=== PATIENT | female | born 1965 | race Caucasian/White ===

== ENCOUNTER 2016-04-05 10:23 | Emergency (ER) | payer SELFPAY ==
[~2016-04-05] VITALS: Ht 175.3 cm; Wt 99.8 kg
[~2016-04-05 10:23] MED LIST: SERT-135
[2016-04-05 10:35] VITALS: BP 150/85
[2016-04-05] MEDS ORDERED: KETOROLAC TROMETH 60MG/2ML VIAL IM ONE (11:30)
== END 2016-04-05 11:49 | disposition home or self-care (01) ==
LOC: ER 10:35
DX: S83.91XA Sprain of unspecified site of right knee, initial encounter (principal); Z88.6 Allergy status to analgesic agent; Z79.899 Other long term (current) drug therapy; F17.210 Nicotine dependence, cigarettes, uncomplicated; V49.49XA Driver injured in collision with other motor vehicles in traffic accident, initial encounter; Y93.89 Activity, other specified; Y99.9 Unspecified external cause status; Y92.89 Other specified places as the place of occurrence of the external cause
CPT/HCPCS: 73562; 96372; 99284; J1885

== ENCOUNTER 2019-07-24 21:37 | Emergency (ER) | payer MEDICAID, OTHER ==
[~2019-07-24] VITALS: Ht 172.7 cm; Wt 100.7 kg
[~2019-07-24 21:37] MED LIST changes: -SERT-135; +SERT100T
[2019-07-25 00:10] LABS: Basophils # (auto) 0.1 10 ^3/uL (0-0.2); Basophils % (auto) 0.3 % (0.0-2.0); Eosinophils # (auto) 0 10 ^3/uL (0-0.8); Eosinophils % (auto) 0.2 % (0.0-7.0); Hematocrit 53.1 % (36.0-46.0); Hemoglobin 18.1 g/dL (12.2-16.2); Lymphocytes # (auto) 0.9 10 ^3/uL (0.4-5.4); Lymphocytes % (auto) 5.3 % (10.0-50.0); Mean Corpuscular Hemoglobin 32.5 pg (28.0-32.0); Mean Corpuscular Hgb Conc. 34.1 g/dL (32.0-36.0); Mean Corpuscular Volume 95.3 fL (80.0-100.0); Monocytes # (auto) 0.8 10 ^3/uL (0-1.3); Monocytes % (auto) 5.1 % (0.0-12.0); Neutrophils # (auto) 14.8 10 ^3/uL (1.6-8.6); Neutrophils % (auto) 89.1 % (37.0-80.0); Nucleated Red Blood Cells % 0.3 %; Platelet Count (auto) 114 10^3/uL (140-450); Red Blood Cells 5.57 10^6/uL (4.0-5.20); Red Cell Distribution Width 13.5 % (11.8-14.3); White Blood Cell 16.6 10^3/uL (4.4-10.8)
[2019-07-25] MEDS ORDERED: SODIUM CHLORIDE 0.9% 2,000 ML IV ONE (00:15)
[2019-07-25] MEDS ORDERED: MORPHINE SULFATE 4 MG/ML SYR/VIAL IV ONE (00:15)
[2019-07-25] MEDS ORDERED: ONDANSETRON HCL 4 MG/2 ML VIAL IV ONE (00:15)
[2019-07-25 00:33] LABS: Albumin 3.8 g/dL (3.4-5.0); BUN/Creatinine Ratio 17.4; Calcium 8.8 mg/dL (8.5-10.1); Potassium 3.8 mmol/L (3.5-5.1)
[2019-07-25 00:41] LABS: Bilirubin, Total 1.4 mg/dL (0.2-1.0); Total Protein 7.7 g/dL (6.4-8.2)
[2019-07-25] MEDS ORDERED: ACETAMINOPHEN 500 MG TAB PO ONE (02:00)
[2019-07-25] MEDS ORDERED: KETOROLAC TROMETH 30 MG/ML 1ML VIAL IV ONE (02:45)
[2019-07-25] MEDS ORDERED: HYDROmorphone HCL 2 MG/ML VL IV ONE (03:30)
[2019-07-25 03:34] LABS: Urine Bacteria FEW /hpf (None Seen); Urine Blood 1+ /uL (Negative); Urine Specific Gravity 1.002 (1.001-1.035); Urine WBC 2 /hpf (0 - 5)
[2019-07-25 04:13] LABS: Alcohol, Urine < 3.0 mg/dL (0-10); Amphetamine Screen, Urine NEGATIVE (NEGATIVE); Barbiturate Scree,Urine NEGATIVE (NEGATIVE); Benzodiazephine Screen, Urine NEGATIVE (NEGATIVE); Cannabinoid Screen, Urine NEGATIVE (NEGATIVE); Cocaine Screen, Urine NEGATIVE (NEGATIVE); Opiate Scree,Urine NEGATIVE (NEGATIVE); Phencyclidine Screen, Urine NEGATIVE (NEGATIVE)
[2019-07-25] MEDS ORDERED: SODIUM CHLORIDE 0.9% 1,000 ML IV ONE (04:15)
[2019-07-25 05:10] VITALS: BP 80/40
== END 2019-07-25 05:30 | disposition home or self-care (01) ==
LOC: ER 21:38
DX: N20.0 Calculus of kidney (principal); N39.0 Urinary tract infection, site not specified; R11.2 Nausea with vomiting, unspecified
CPT/HCPCS: 36415; 74176; 80053; 80307; 81001; 83880; 85025; 96361; 96374; 96375; 99284; J1170; J1885; J2270; J2405; J7030

== ENCOUNTER 2019-07-26 07:04 | Inpatient (IN) | payer OTHER ==
[~2019-07-26] VITALS: Ht 172.7 cm; Wt 125.0 kg
[2019-07-26] VITALS (15 sets, daily range): BP systolic 97–109; BP diastolic 43–63
[2019-07-26] MEDS ORDERED: SODIUM CHLORIDE 0.9% 1,000 ML IV ONE ×2 (07:15)
[2019-07-26] MEDS ORDERED: cefTRIAXone 1GM/50ML D5W 50 ML IV ONE (07:30)
[2019-07-26 08:15] LABS: Basophils # (auto) 0 10 ^3/uL (0-0.2); Hemoglobin 14.8 g/dL (12.2-16.2); Lymphocytes # (auto) 0.5 10 ^3/uL (0.4-5.4); Monocytes # (auto) 0.5 10 ^3/uL (0-1.3); Neutrophils # (auto) 17.6 10 ^3/uL (1.6-8.6); Red Cell Distribution Width 14.1 % (11.8-14.3)
[2019-07-26] MEDS ORDERED: SODIUM CHLORIDE 0.9% 3,400 ML IV ONE (08:15)
[2019-07-26 08:17] LABS: Basophils % (auto) 0.1 % (0.0-2.0); Eosinophils # (auto) 0 10 ^3/uL (0-0.8); Eosinophils % (auto) 0.1 % (0.0-7.0); Lymphocytes % (auto) 2.7 % (10.0-50.0); Mean Corpuscular Hemoglobin 32.7 pg (28.0-32.0); Mean Corpuscular Hgb Conc. 33.5 g/dL (32.0-36.0); Mean Corpuscular Volume 97.6 fL (80.0-100.0); Monocytes % (auto) 2.6 % (0.0-12.0); Neutrophils % (auto) 94.5 % (37.0-80.0); Platelet Count (auto) 48 10^3/uL (140-450); White Blood Cell 18.6 10^3/uL (4.4-10.8)
[2019-07-26 08:22] LABS: INR 1.71 (0.9-1.15); Partial Thromboplastin Time 39.3 sec (23.64-32.05)
[2019-07-26] MEDS ORDERED: ZINC SULFATE 220mg CAP or TAB PO ONE (08:30)
[2019-07-26] MEDS ORDERED: ASCORBIC ACID 500 MG TAB PO ONE (08:30)
[2019-07-26 08:32] LABS: Albumin 2.7 g/dL (3.4-5.0); Potassium 4.4 mmol/L (3.5-5.1)
[2019-07-26 08:39] LABS: Bilirubin, Total 2.2 mg/dL (0.2-1.0); Total Protein 6.4 g/dL (6.4-8.2)
[2019-07-26 08:58] LABS: BUN/Creatinine Ratio 10.7
[2019-07-26] MEDS ORDERED: NOREPINEPHRINE 8 MG/250ML KIT 250 ML IV ONE (09:47)
[2019-07-26] MEDS: NOREPINEPHRINE 8 MG/250ML KIT 250 ML IV SCH (10:00)
[2019-07-26 10:03] LABS: Urine Amorphous Crystal FEW /hpf (None Seen); Urine Bacteria FEW /hpf (None Seen); Urine Blood 2+ /uL (Negative); Urine Specific Gravity 1.021 (1.001-1.035); Urine WBC 184 /hpf (0 - 5); Urine WBC Clumps PRESENT /hpf (None Seen)
[2019-07-26 12:16] LABS: Lactic Acid w/Reflex 2.3 mmol/L (0.4-2.0)
[2019-07-26] MEDS ORDERED: NITROGLYCERIN 0.4 MG SL TAB SL PRN (12:30)
[2019-07-26] MEDS ORDERED: ASPirin 81 mg TAB PO ONE (12:45)
[2019-07-26] MEDS ORDERED: NICOTINE 21MG/24 HR TOPICAL PATCH TD ONE (13:00)
[2019-07-26] MEDS: HYDROcodone-ACET 5/325MG TAB PO PRN ×2 (13:15→22:59)
[2019-07-26] MEDS: ONDANSETRON HCL 4 MG/2 ML VIAL IV PRN (13:16)
[2019-07-26] MEDS: PIPERACILLIN-TAZOB 2.25GM 50 ML IV SCH ×2 (13:16→22:21)
[2019-07-26] MEDS: SODIUM BICARBONATE 50ML VIAL 100 ML in D5W 5% 1,000 ML IV SCH ×2 (13:17→22:58)
[2019-07-26] MEDS ORDERED: POTASSIUM CHL 20MEQ/100ML 100 ML IV ONE (15:00)
[2019-07-26] MEDS: MORPHINE SULF INJ 2 MG/ML SYRINGE 1ML IV PRN (16:38)
[2019-07-26] MEDS ORDERED: HYDROmorphone HCL 2 MG/ML VL IV ONE (18:15)
[2019-07-26] MEDS: TAMSULOSIN HYDROCHLORIDE 0.4 MG CAP PO SCH (18:16)
[2019-07-26] MEDS: ALBUTEROL SULF 2.5 MG/0.5ML(0.5%) NEB SOLN NEB PRN (19:43)
[2019-07-26] MEDS: IPRATROPIUM BROM 0.5 MG/2.5ML INH SOL NEB PRN (19:44)
[2019-07-26] MEDS ORDERED: SODIUM BICARBONATE 8.4 % INJ 50ML VIAL IV ONE (21:38)
[2019-07-26] MEDS: HYDROCORTISONE SOD SUCC 100 MG/2ML INJ VIAL IV SCH (22:21)
[2019-07-27] VITALS (96 sets, daily range): BP systolic 90–118; BP diastolic 36–69
[2019-07-27] MEDS: NOREPINEPHRINE 8 MG/250ML KIT 250 ML IV SCH (02:21)
[2019-07-27 04:21] LABS: Basophils # (auto) 0 10 ^3/uL (0-0.2); Basophils % (auto) 0.1 % (0.0-2.0); Eosinophils # (auto) 0.7 10 ^3/uL (0-0.8); Eosinophils % (auto) 3.3 % (0.0-7.0); Hematocrit 40.5 % (36.0-46.0); Hemoglobin 13.6 g/dL (12.2-16.2); Lymphocytes # (auto) 0.8 10 ^3/uL (0.4-5.4); Lymphocytes % (auto) 3.7 % (10.0-50.0); Mean Corpuscular Hemoglobin 32.4 pg (28.0-32.0); Mean Corpuscular Hgb Conc. 33.6 g/dL (32.0-36.0); Mean Corpuscular Volume 96.6 fL (80.0-100.0); Monocytes # (auto) 0.5 10 ^3/uL (0-1.3); Monocytes % (auto) 2.3 % (0.0-12.0); Neutrophils % (auto) 90.6 % (37.0-80.0); Platelet Count (auto) 51 10^3/uL (140-450); Red Blood Cells 4.19 10^6/uL (4.0-5.20); Red Cell Distribution Width 14.1 % (11.8-14.3)
[2019-07-27 04:59] LABS: Calcium 6.6 mg/dL (8.5-10.1); Potassium 3.6 mmol/L (3.5-5.1)
[2019-07-27 05:02] LABS: BUN/Creatinine Ratio 18.4
[2019-07-27] MEDS: ALBUTEROL SULF 2.5 MG/0.5ML(0.5%) NEB SOLN NEB PRN ×2 (05:27→15:28)
[2019-07-27] MEDS: IPRATROPIUM BROM 0.5 MG/2.5ML INH SOL NEB PRN ×2 (05:27→15:28)
[2019-07-27] MEDS: PIPERACILLIN-TAZOB 2.25GM 50 ML IV SCH (05:58)
[2019-07-27] MEDS: ACETAMINOPHEN 500 MG TAB PO PRN ×2 (07:59→20:05)
[2019-07-27] MEDS: SODIUM BICARBONATE 50ML VIAL 100 ML in D5W 5% 1,000 ML IV SCH ×2 (08:46→17:26)
[2019-07-27] MEDS ORDERED: cefTRIAXone 1GM/50ML D5W 50 ML IV SCH (09:00)
[2019-07-27] MEDS: NICOTINE 21MG/24 HR TOPICAL PATCH TD SCH (09:49)
[2019-07-27] MEDS: ASPirin 81 mg TAB PO SCH (09:49)
[2019-07-27] MEDS: ALLOPURINOL 100 MG TAB PO SCH (09:49)
[2019-07-27] MEDS: HYDROCORTISONE SOD SUCC 100 MG/2ML INJ VIAL IV SCH ×2 (09:49→22:35)
[2019-07-27] MEDS: ENOXAPARIN SOD 120 MG/0.8 ML SYRINGE SC SCH (09:50)
[2019-07-27] MEDS ORDERED: PANTOPRAZOLE 40 MG TAB PO ONE (11:30)
[2019-07-27] MEDS ORDERED: CHOLECALCIFEROL (VITD3) 1,000IU=25mCg TAB PO ONE (11:30)
[2019-07-27] MEDS ORDERED: SODIUM PHOSPHATES 40 MEQ in D5W 5% 250 ML IV ONE (12:00)
[2019-07-27] MEDS: PIPERACILLIN-TAZOB 3.375GM 100 ML IV SCH ×2 (12:59→17:27)
[2019-07-27] MEDS: TAMSULOSIN HYDROCHLORIDE 0.4 MG CAP PO SCH (17:27)
[2019-07-27] MEDS: HYDROcodone-ACET 5/325MG TAB PO PRN ×2 (18:24→19:14)
[2019-07-27] MEDS: ONDANSETRON HCL 4 MG/2 ML VIAL IV PRN (18:42)
[2019-07-28] VITALS (95 sets, daily range): BP systolic 87–129; BP diastolic 44–81
[2019-07-28] MEDS: NOREPINEPHRINE 8 MG/250ML KIT 250 ML IV SCH (00:06)
[2019-07-28] MEDS: ACETAMINOPHEN 500 MG TAB PO PRN ×2 (04:17→16:31)
[2019-07-28 04:44] LABS: Basophils # (auto) 0 10 ^3/uL (0-0.2); Basophils % (auto) 0.1 % (0.0-2.0); Eosinophils # (auto) 0 10 ^3/uL (0-0.8); Monocytes # (auto) 0.4 10 ^3/uL (0-1.3); Neutrophils # (auto) 14.7 10 ^3/uL (1.6-8.6); Red Cell Distribution Width 14.3 % (11.8-14.3); White Blood Cell 15.7 10^3/uL (4.4-10.8)
[2019-07-28 04:46] LABS: Eosinophils % (auto) 0.1 % (0.0-7.0); Hemoglobin 12.7 g/dL (12.2-16.2); Lymphocytes # (auto) 0.6 10 ^3/uL (0.4-5.4); Lymphocytes % (auto) 3.7 % (10.0-50.0); Mean Corpuscular Hemoglobin 32.9 pg (28.0-32.0); Mean Corpuscular Hgb Conc. 34.2 g/dL (32.0-36.0); Monocytes % (auto) 2.6 % (0.0-12.0); Neutrophils % (auto) 93.5 % (37.0-80.0); Platelet Count (auto) 55 10^3/uL (140-450); Red Blood Cells 3.86 10^6/uL (4.0-5.20)
[2019-07-28 04:47] LABS: INR 1.12 (0.9-1.15)
[2019-07-28 04:52] LABS: Potassium 3.3 mmol/L (3.5-5.1)
[2019-07-28 05:04] LABS: Albumin 2.2 g/dL (3.4-5.0); BUN/Creatinine Ratio 13.3; Bilirubin, Total 1.1 mg/dL (0.2-1.0); Calcium 7.1 mg/dL (8.5-10.1); Magnesium 2.1 mg/dL (1.6-2.6); Phosphorus 2.8 mg/dL (2.5-4.90); Total Protein 5.7 g/dL (6.4-8.2)
[2019-07-28] MEDS: PIPERACILLIN-TAZOB 3.375GM 100 ML IV SCH ×5 (05:34→23:50)
[2019-07-28] MEDS ORDERED: POTASSIUM CHL 20MEQ/100ML 100 ML IV ONE (06:45)
[2019-07-28] MEDS: SODIUM BICARBONATE 50ML VIAL 100 ML in D5W 5% 1,000 ML IV SCH (06:53)
[2019-07-28] MEDS: ASPirin 81 mg TAB PO SCH (09:21)
[2019-07-28] MEDS: PANTOPRAZOLE 40 MG TAB PO SCH (09:21)
[2019-07-28] MEDS: ALLOPURINOL 100 MG TAB PO SCH (09:21)
[2019-07-28] MEDS: CHOLECALCIFEROL (VITD3) 1,000IU=25mCg TAB PO SCH (09:23)
[2019-07-28] MEDS: ENOXAPARIN SOD 120 MG/0.8 ML SYRINGE SC SCH (09:24)
[2019-07-28] MEDS: HYDROCORTISONE SOD SUCC 100 MG/2ML INJ VIAL IV SCH (10:39)
[2019-07-28] MEDS: NICOTINE 21MG/24 HR TOPICAL PATCH TD SCH (10:39)
[2019-07-28] MEDS: SODIUM CHLORIDE 0.9% 1,000 ML IV SCH ×2 (10:51→21:50)
[2019-07-28] MEDS: IPRATROPIUM BROM 0.5 MG/2.5ML INH SOL NEB PRN (15:54)
[2019-07-28] MEDS: ALBUTEROL SULF 2.5 MG/0.5ML(0.5%) NEB SOLN NEB PRN (15:55)
[2019-07-28] MEDS: MORPHINE SULF INJ 2 MG/ML SYRINGE 1ML IV PRN (16:34)
[2019-07-28] MEDS: TAMSULOSIN HYDROCHLORIDE 0.4 MG CAP PO SCH (18:09)
[2019-07-28] MEDS ORDERED: POTASSIUM CHL 20 Meq TABLET PO ONE (19:15)
[2019-07-29] VITALS (80 sets, daily range): BP systolic 88–132; BP diastolic 44–73
[2019-07-29] MEDS: MORPHINE SULF INJ 2 MG/ML SYRINGE 1ML IV PRN ×3 (02:05→06:05)
[2019-07-29] MEDS: HYDROcodone-ACET 5/325MG TAB PO PRN ×4 (02:54→21:52)
[2019-07-29 05:36] LABS: Albumin 2.2 g/dL (3.4-5.0); Calcium 7.5 mg/dL (8.5-10.1); Potassium 3.2 mmol/L (3.5-5.1)
[2019-07-29 05:41] LABS: BUN/Creatinine Ratio 15.5; Bilirubin, Direct 0.7 mg/dL (0-0.2); Bilirubin, Total 1.2 mg/dL (0.2-1.0); Total Protein 5.5 g/dL (6.4-8.2)
[2019-07-29 05:42] LABS: Basophils # (auto) 0 10 ^3/uL (0-0.2); Eosinophils # (auto) 0.1 10 ^3/uL (0-0.8); Hemoglobin 12.4 g/dL (12.2-16.2); Mean Corpuscular Volume 95.8 fL (80.0-100.0)
[2019-07-29 05:44] LABS: Basophils % (auto) 0.4 % (0.0-2.0); Eosinophils % (auto) 0.6 % (0.0-7.0); Hematocrit 36.2 % (36.0-46.0); Lymphocytes # (auto) 1.2 10 ^3/uL (0.4-5.4); Lymphocytes % (auto) 11.3 % (10.0-50.0); Mean Corpuscular Hemoglobin 32.8 pg (28.0-32.0); Mean Corpuscular Hgb Conc. 34.2 g/dL (32.0-36.0); Monocytes # (auto) 0.7 10 ^3/uL (0-1.3); Monocytes % (auto) 7.1 % (0.0-12.0); Neutrophils # (auto) 8.2 10 ^3/uL (1.6-8.6); Neutrophils % (auto) 80.6 % (37.0-80.0); Platelet Count (auto) 54 10^3/uL (140-450); Red Blood Cells 3.78 10^6/uL (4.0-5.20); Red Cell Distribution Width 14.2 % (11.8-14.3); White Blood Cell 10.2 10^3/uL (4.4-10.8)
[2019-07-29] MEDS: PIPERACILLIN-TAZOB 3.375GM 100 ML IV SCH ×3 (05:47→18:25)
[2019-07-29] MEDS ORDERED: POTASSIUM CHL 20MEQ/100ML 100 ML IV ONE (06:45)
[2019-07-29] MEDS: ALLOPURINOL 100 MG TAB PO SCH (08:33)
[2019-07-29] MEDS: PANTOPRAZOLE 40 MG TAB PO SCH (08:33)
[2019-07-29] MEDS: CHOLECALCIFEROL (VITD3) 1,000IU=25mCg TAB PO SCH (08:34)
[2019-07-29] MEDS: ENOXAPARIN SOD 120 MG/0.8 ML SYRINGE SC SCH (08:34)
[2019-07-29] MEDS: ALBUTEROL SULF 2.5 MG/0.5ML(0.5%) NEB SOLN NEB PRN (08:56)
[2019-07-29] MEDS: IPRATROPIUM BROM 0.5 MG/2.5ML INH SOL NEB PRN (08:56)
[2019-07-29] MEDS: NOREPINEPHRINE 8 MG/250ML KIT 250 ML IV SCH (09:54)
[2019-07-29] MEDS: SODIUM CHLORIDE 0.9% 1,000 ML IV SCH ×2 (10:52→12:00)
[2019-07-29] MEDS: ASPirin 81 mg TAB PO SCH (10:57)
[2019-07-29] MEDS: NICOTINE 21MG/24 HR TOPICAL PATCH TD SCH (10:58)
[2019-07-29] MEDS ORDERED: POTASSIUM CHL 20 Meq TABLET PO ONE (11:30)
[2019-07-29] MEDS: TAMSULOSIN HYDROCHLORIDE 0.4 MG CAP PO SCH (18:25)
[2019-07-30] MEDS ORDERED: ENOXAPARIN SOD 30 MG/0.3 ML SYRINGE SC SCH (10:00)
== END 2019-07-29 21:55 | disposition short-term general hospital (02) | DRG 871 ==
LOC: ER 07:04 → EDBD 07:04 → TELE 07:05 → ICU WEST 20:12
PROVIDERS: ADMIT Nurse Practitioner Acute Care; ATTEND Internal Medicine
DX: A41.9 Sepsis, unspecified organism (principal); R65.21 Severe sepsis with septic shock; I21.4 Non-ST elevation (NSTEMI) myocardial infarction; N17.0 Acute kidney failure with tubular necrosis; E44.0 Moderate protein-calorie malnutrition; Z68.41 Body mass index [BMI] 40.0-44.9, adult; N30.00 Acute cystitis without hematuria; I13.0 Hypertensive heart and chronic kidney disease with heart failure and stage 1 through stage 4 chronic kidney disease, or unspecified chronic kidney disease; E66.9 Obesity, unspecified; F17.210 Nicotine dependence, cigarettes, uncomplicated; D72.829 Elevated white blood cell count, unspecified; E83.51 Hypocalcemia; N18.9 Chronic kidney disease, unspecified; E11.22 Type 2 diabetes mellitus with diabetic chronic kidney disease; J44.9 Chronic obstructive pulmonary disease, unspecified; I95.9 Hypotension, unspecified; E11.649 Type 2 diabetes mellitus with hypoglycemia without coma; Z88.5 Allergy status to narcotic agent; Z87.442 Personal history of urinary calculi; Z90.49 Acquired absence of other specified parts of digestive tract; Z79.899 Other long term (current) drug therapy; Z82.49 Family history of ischemic heart disease and other diseases of the circulatory system; Z80.8 Family history of malignant neoplasm of other organs or systems
CPT/HCPCS: 36415; 36600; 71045; 74176; 80048; 80053; 80061; 80076; 81001; 82306; 82728; 82805; 83036; 83605; 83615; 83735; 83880; 83970; 84100; 84443; 84484; 84550; 85025; 85610; 85730; 86141; 87040; 87070; 87081; 87086; 87804; 87880; 93005; 93306; 94640; 99291; G0378; J0696; J2405; J2543; J3480; J7042; J7060

== ENCOUNTER 2022-04-27 17:27 | Inpatient (IN) | payer OTHER ==
[~2022-04-27] VITALS: Ht 175.3 cm; Wt 114.9 kg
[2022-04-27] MEDS: MIDAZOLAM DRIP 50 mg/50mL 50 ML IV SCH (06:10)
[2022-04-27] MEDS ORDERED: HYDROmorphone HCL 2 MG/ML VL/or syr IM ONE (17:45)
[2022-04-27] MEDS ORDERED: ONDANSETRON HCL 4 MG/2 ML VIAL IM ONE ×3 (17:45→22:45)
[2022-04-27 17:55] LABS: Basophils # (auto) 0.1 10 ^3/uL (0-0.2); Eosinophils # (auto) 0.1 10 ^3/uL (0-0.8)
[2022-04-27 17:57] LABS: Basophils % (auto) 0.4 % (0.0-2.0); Eosinophils % (auto) 0.8 % (0.0-7.0); Hematocrit 53.9 % (36.0-46.0); Hemoglobin 19.5 g/dL (12.2-16.2); Mean Corpuscular Hemoglobin 34.6 pg (28.0-32.0); Mean Corpuscular Hgb Conc. 36.1 g/dL (32.0-36.0); Mean Corpuscular Volume 95.7 fL (80.0-100.0); Monocytes # (auto) 0.8 10 ^3/uL (0-1.3); Monocytes % (auto) 4.9 % (0.0-12.0); Neutrophils # (auto) 11.2 10 ^3/uL (1.6-8.6); Neutrophils % (auto) 64.9 % (37.0-80.0); Red Blood Cells 5.63 10^6/uL (4.0-5.20); Red Cell Distribution Width 12.9 % (11.8-14.3); White Blood Cell 17.2 10^3/uL (4.4-10.8)
[2022-04-27] MEDS ORDERED: ONDANSETRON HCL 4 MG/2 ML VIAL IV ONE (18:00)
[2022-04-27] MEDS ORDERED: HYDROmorphone HCL 2 MG/ML VL/or syr IV ONE (18:00)
[2022-04-27] MEDS ORDERED: ROCURONIUM 10MG/ML 10ML VIAL IV ONE (18:15)
[2022-04-27] MEDS ORDERED: SUCCINYLCHOLINE CHLORIDE 20 MG/ML 10ML VIAL IV ONE (18:15)
[2022-04-27] MEDS ORDERED: ETOMIDATE (2MG/ML) 20ML VIAL IV ONE (18:15)
[2022-04-27 18:33] LABS: Albumin 3.6 g/dL (3.4-5.0); Calcium 9.4 mg/dL (8.5-10.1); Magnesium 2.1 mg/dL (1.6-2.6); Potassium 4.5 mmol/L (3.5-5.1)
[2022-04-27 18:38] LABS: BUN/Creatinine Ratio 22.4; Bilirubin, Total 1.7 mg/dL (0.2-1.0); Total Protein 7.1 g/dL (6.4-8.2)
[2022-04-27] MEDS ORDERED: fentaNYL CITRATE 100 MCG/2 ML VL IV ONE (19:45)
[2022-04-27] MEDS ORDERED: LIDOCAINE W/ EPINEPHRINE 2% INJ 20ML VIAL ONE (20:03)
[2022-04-27] MEDS ORDERED: POVIDONE IODINE 10 % TOPICAL OINT 30GM TOP ONE (20:03)
[2022-04-27] MEDS ORDERED: ONDANSETRON HCL 4 MG/2 ML VIAL ONE (20:12)
[2022-04-27] MEDS ORDERED: GLYCOPYRROLATE 0.2 MG/ML 1ML VIAL ONE (20:12)
[2022-04-27] MEDS ORDERED: LIDOCAINE 2% (LOCAL ANESTH.) PF 5ml SDV ONE (20:12)
[2022-04-27] MEDS ORDERED: PROPOFOL 10 MG/ML 20 ML IV ONE ×2 (20:12→22:16)
[2022-04-27] MEDS ORDERED: DexAMETHasone SOD PHOS 10MG/1ML VIAL INJ ONE (20:12)
[2022-04-27] MEDS ORDERED: MIDAZOLAM HCL 2MG/2ML 2ml VIAL (1mg/ml) ONE (20:20)
[2022-04-27] MEDS ORDERED: ePHEDrine SULFATE 50 MG/ML AMP IV ONE (20:35)
[2022-04-27] MEDS ORDERED: KETOROLAC TROMETH 60MG/2ML VIAL IM ONE (20:35)
[2022-04-27] MEDS ORDERED: ceFAZolin 1GM/50ML 100 ML IV ONE (21:05)
[2022-04-27] MEDS ORDERED: metroNIDAZOLE 500MG/100ML 100 ML IV ONE (22:15)
[2022-04-27] MEDS ORDERED: D5W/SOD CHL 0.45%/KCL 20MEQ 1,000 ML IV ONE (22:15)
[2022-04-27] MEDS ORDERED: PANTOPRAZOLE 40 MG/10 ML VIAL INJ IV ONE (22:15)
[2022-04-27] MEDS ORDERED: PIPERACILLIN-TAZO 4.5GM 100 ML IV ONE (22:15)
[2022-04-27 22:50] VITALS: BP 60/27
[2022-04-27] MEDS ORDERED: NOREPINEPHRINE 8 MG/250ML KIT 250 ML IV ONE (22:59)
[2022-04-27 23:31] VITALS: BP 124/90
[2022-04-28] VITALS (95 sets, daily range): BP systolic 79–129; BP diastolic 40–93
[2022-04-28] MEDS ORDERED: ONDANSETRON HCL 4 MG/2 ML VIAL IV PRN
[2022-04-28] MEDS ORDERED: MORPHINE SULFATE INJ 2 MG/ml SYRG IV PRN
[2022-04-28] MEDS ORDERED: SODIUM CHLORIDE 0.9% 1,000 ML IV SCH
[2022-04-28] MEDS ORDERED: NITROGLYCERIN 0.4 MG SL TAB SL PRN
[2022-04-28] MEDS ORDERED: SODIUM BICARBONATE 8.4 % INJ 50ML VIAL IV ONE ×2 (00:34→02:45)
[2022-04-28] MEDS ORDERED: D5W/SOD CHL 0.45%/KCL 20MEQ 1,000 ML IV ONE (01:03)
[2022-04-28] MEDS: NOREPINEPHRINE 8 MG/250ML KIT 250 ML IV SCH ×3 (01:07→19:08)
[2022-04-28] MEDS: PROPOFOL 100 ML IV SCH ×3 (01:10→09:40)
[2022-04-28] MEDS ORDERED: PIPERACILLIN-TAZO 4.5GM 100 ML IV ONE (02:30)
[2022-04-28 02:48] LABS: Basophils # (auto) 0 10 ^3/uL (0-0.2); Eosinophils # (auto) 0 10 ^3/uL (0-0.8); Eosinophils % (auto) 0.1 % (0.0-7.0); Lymphocytes # (auto) 0.4 10 ^3/uL (0.4-5.4); Lymphocytes % (auto) 11.9 % (10.0-50.0); Monocytes # (auto) 0.2 10 ^3/uL (0-1.3); Monocytes % (auto) 5.5 % (0.0-12.0); White Blood Cell 3.3 10^3/uL (4.4-10.8)
[2022-04-28 02:50] LABS: Basophils % (auto) 0.5 % (0.0-2.0); Hematocrit 54.7 % (36.0-46.0); Mean Corpuscular Hemoglobin 34.1 pg (28.0-32.0); Mean Corpuscular Hgb Conc. 34.7 g/dL (32.0-36.0); Mean Corpuscular Volume 98.4 fL (80.0-100.0); Neutrophils # (auto) 2.7 10 ^3/uL (1.6-8.6); Nucleated Red Blood Cells % 0.2 %; Red Blood Cells 5.56 10^6/uL (4.0-5.20); Red Cell Distribution Width 12.9 % (11.8-14.3)
[2022-04-28 03:08] LABS: Albumin 1.7 g/dL (3.4-5.0); BUN/Creatinine Ratio 19.5; Calcium 7.4 mg/dL (8.5-10.1); Potassium 5.1 mmol/L (3.5-5.1)
[2022-04-28 03:10] LABS: Bilirubin, Total 3.8 mg/dL (0.2-1.0); Total Protein 3.8 g/dL (6.4-8.2)
[2022-04-28] MEDS: metroNIDAZOLE 500MG/100ML 100 ML IV SCH ×3 (05:55→22:02)
[2022-04-28] MEDS ORDERED: ceFAZolin 1GM/50ML 50 ML IV SCH (06:00)
[2022-04-28] MEDS ORDERED: SODIUM CHLORIDE 0.9% 2,000 ML IV ONE (09:00)
[2022-04-28] MEDS ORDERED: fentaNYL Drip 2500mCg/250mlNS 250 ML IV SCH (09:00)
[2022-04-28] MEDS ORDERED: SODIUM CHLORIDE 0.9% 2,700 ML IV ONE (09:15)
[2022-04-28] MEDS: fentaNYL Drip 2500mCg/250mlNS 250 ML IV SCH (09:39)
[2022-04-28] MEDS: PANTOPRAZOLE 40 MG/10 ML VIAL INJ IV SCH (10:10)
[2022-04-28 10:48] LABS: Magnesium 2.5 mg/dL (1.6-2.6); Phosphorus 3.9 mg/dL (2.5-4.90)
[2022-04-28] MEDS ORDERED: FOLIC ACID 1 MG, MULTIPLE VITAMIN 10 ML, MAGNESIUM SULF SDV 50% 8 MEQ, THIAMINE INJ 100... INJ SCH ×5 (12:00)
[2022-04-28] MEDS ORDERED: DEXTROSE (50%) 50ML SYRG IV SCH (12:00)
[2022-04-28 12:08] LABS: Lactic Acid w/Reflex 5.8 mmol/L (0.4-2.0)
[2022-04-28] MEDS: D5W/SOD CHL 0.45% 1,000 ML IV SCH (13:00)
[2022-04-28] MEDS: PHENYLEPHRINE IV 250 ML IV SCH ×2 (14:45→19:07)
[2022-04-28] MEDS: ACCU-CHEK COMFORT CURVE STRIP VI SCH ×2 (15:06→18:00)
[2022-04-28] MEDS: InsuLIN REG 1unit/0.01ml Soln (100units/ml) SC SCH ×2 (15:06→18:00)
[2022-04-28] MEDS ORDERED: TPN PER PHARMACY IV NR ×6 (20:00)
[2022-04-28] MEDS: MIDAZOLAM DRIP 50 mg/50mL 50 ML IV SCH (22:15)
[2022-04-29] VITALS (103 sets, daily range): BP systolic 79–145; BP diastolic 42–81
[2022-04-29] MEDS: ACCU-CHEK COMFORT CURVE STRIP VI SCH ×5 (01:00→23:20)
[2022-04-29] MEDS: D5W/SOD CHL 0.45% 1,000 ML IV SCH ×4 (01:10→21:50)
[2022-04-29] MEDS: InsuLIN REG 1unit/0.01ml Soln (100units/ml) SC SCH ×5 (01:32→23:21)
[2022-04-29] MEDS: PHENYLEPHRINE IV 250 ML IV SCH ×3 (03:40→18:31)
[2022-04-29] MEDS: metroNIDAZOLE 500MG/100ML 100 ML IV SCH ×4 (06:33→22:32)
[2022-04-29 06:41] LABS: Hemoglobin 16.6 g/dL (12.2-16.2); Mean Corpuscular Hgb Conc. 34.9 g/dL (32.0-36.0)
[2022-04-29 06:43] LABS: Hematocrit 47.6 % (36.0-46.0); Mean Corpuscular Hemoglobin 34.8 pg (28.0-32.0); Mean Corpuscular Volume 99.7 fL (80.0-100.0); Red Blood Cells 4.78 10^6/uL (4.0-5.20); White Blood Cell 6.2 10^3/uL (4.4-10.8)
[2022-04-29 06:48] LABS: Basophils % (manual) 0 (0.0-2.0); Blast Cells 0; Eosinophils % (manual) 0 (0-7); Myelocytes % 0; Promyelocytes % 0; Reactive Lymphocytes 0
[2022-04-29 06:56] LABS: Potassium 5.2 mmol/L (3.5-5.1)
[2022-04-29 07:08] LABS: Albumin 1.2 g/dL (3.4-5.0); BUN/Creatinine Ratio 19.1; Bilirubin, Total 1.8 mg/dL (0.2-1.0); Calcium 7.5 mg/dL (8.5-10.1); Magnesium 2.1 mg/dL (1.6-2.6); Phosphorus 3.5 mg/dL (2.5-4.90); Total Protein 3.9 g/dL (6.4-8.2)
[2022-04-29] MEDS: fentaNYL Drip 2500mCg/250mlNS 250 ML IV SCH ×2 (09:15→15:28)
[2022-04-29] MEDS: MIDAZOLAM DRIP 50 mg/50mL 50 ML IV SCH ×5 (09:31→22:20)
[2022-04-29] MEDS: NOREPINEPHRINE 8 MG/250ML KIT 250 ML IV SCH ×3 (09:32→18:30)
[2022-04-29] MEDS ORDERED: SODIUM BICARBONATE 8.4 % INJ 50ML VIAL IV ONE ×2 (10:15→16:45)
[2022-04-29] MEDS: PANTOPRAZOLE 40 MG/10 ML VIAL INJ IV SCH (10:35)
[2022-04-29] MEDS: cefTRIAXone 1GM/50ML D5W 50 ML IV SCH (10:35)
[2022-04-29] MEDS: THIAMINE 100mg/ml INJ (200mg/2ml VIAL) IV SCH (10:35)
[2022-04-29 12:09] LABS: Band Neutrophils % (manual) 81; Lymphocytes % (manual) 11 (10.0-50.0); Metamyelocytes % 3; Monocytes % (manual) 5 (0-12)
[2022-04-29] MEDS ORDERED: FUROSEMIDE 40 MG/4 ML VIAL IV ONE (14:30)
[2022-04-29] MEDS ORDERED: InsuLIN REG 1unit/0.01ml Soln (100units/ml) IV ONE (16:45)
[2022-04-29] MEDS ORDERED: CALCIUM GLUC 1,000mg/50ml-NS 50 ML IV ONE (16:45)
[2022-04-29] MEDS ORDERED: DEXTROSE (50%) 50ML SYRG IV ONE (16:45)
[2022-04-29] MEDS ORDERED: DEXTROSE 10% 250 ML IV ONE (18:15)
[2022-04-29] MEDS ORDERED: SODIUM ACETATE IV NR ×9 (20:00)
[2022-04-29] MEDS ORDERED: CALCIUM GLUC IV NR ×9 (20:00)
[2022-04-29] MEDS ORDERED: [UNRECOGNIZED DRUG - OTHER] IV NR ×9 (20:00)
[2022-04-29] MEDS ORDERED: SODIUM PHOSPHATES IV NR ×9 (20:00)
[2022-04-30] VITALS (102 sets, daily range): BP systolic 81–144; BP diastolic 26–83
[2022-04-30] MEDS: NOREPINEPHRINE 8 MG/250ML KIT 250 ML IV SCH ×3 (00:15→22:07)
[2022-04-30] MEDS: PROPOFOL 100 ML IV SCH (00:30)
[2022-04-30] MEDS: PHENYLEPHRINE IV 250 ML IV SCH ×6 (01:22→23:55)
[2022-04-30] MEDS: fentaNYL Drip 2500mCg/250mlNS 250 ML IV SCH ×2 (01:24→12:46)
[2022-04-30] MEDS: MIDAZOLAM DRIP 50 mg/50mL 50 ML IV SCH ×6 (01:59→21:48)
[2022-04-30] MEDS: ACCU-CHEK COMFORT CURVE STRIP VI SCH ×4 (05:38→23:55)
[2022-04-30] MEDS: InsuLIN REG 1unit/0.01ml Soln (100units/ml) SC SCH ×4 (05:44→23:55)
[2022-04-30] MEDS: metroNIDAZOLE 500MG/100ML 100 ML IV SCH ×3 (05:52→21:48)
[2022-04-30 06:03] LABS: Hematocrit 39.2 % (36.0-46.0); Hemoglobin 13.6 g/dL (12.2-16.2); White Blood Cell 5.5 10^3/uL (4.4-10.8)
[2022-04-30 06:06] LABS: Mean Corpuscular Hgb Conc. 34.6 g/dL (32.0-36.0); Mean Corpuscular Volume 98.2 fL (80.0-100.0); Red Blood Cells 3.99 10^6/uL (4.0-5.20); Red Cell Distribution Width 13.3 % (11.8-14.3)
[2022-04-30 06:20] LABS: Calcium 7.6 mg/dL (8.5-10.1); Potassium 4.6 mmol/L (3.5-5.1)
[2022-04-30 06:23] LABS: BUN/Creatinine Ratio 22.6; Bilirubin, Total 1.2 mg/dL (0.2-1.0); Phosphorus 2.5 mg/dL (2.5-4.90); Total Protein 3.8 g/dL (6.4-8.2)
[2022-04-30 06:27] LABS: Basophils % (manual) 0 (0.0-2.0); Blast Cells 0; Eosinophils % (manual) 0 (0-7); Myelocytes % 0; Promyelocytes % 0; Reactive Lymphocytes 0
[2022-04-30] MEDS: D5W/SOD CHL 0.45% 1,000 ML IV SCH ×2 (07:45→17:10)
[2022-04-30 08:04] LABS: Band Neutrophils % (manual) 33; Lymphocytes % (manual) 23 (10.0-50.0); Metamyelocytes % 1; Monocytes % (manual) 1 (0-12)
[2022-04-30] MEDS: THIAMINE 100mg/ml INJ (200mg/2ml VIAL) IV SCH (10:43)
[2022-04-30] MEDS: PANTOPRAZOLE 40 MG/10 ML VIAL INJ IV SCH (10:43)
[2022-04-30] MEDS: cefTRIAXone 1GM/50ML D5W 50 ML IV SCH (10:44)
[2022-04-30] MEDS ORDERED: FUROSEMIDE 100 MG/10ML VIAL IV ONE (13:00)
[2022-04-30] MEDS ORDERED: TPN PER PHARMACY IV NR ×11 (20:00)
[2022-05-01] VITALS (101 sets, daily range): BP systolic 69–133; BP diastolic 42–67
[2022-05-01] MEDS: PROPOFOL 100 ML IV SCH (00:30)
[2022-05-01] MEDS: MIDAZOLAM DRIP 50 mg/50mL 50 ML IV SCH ×7 (00:53→22:22)
[2022-05-01] MEDS: fentaNYL Drip 2500mCg/250mlNS 250 ML IV SCH ×3 (00:54→22:23)
[2022-05-01] MEDS: PHENYLEPHRINE IV 250 ML IV SCH ×4 (04:49→21:42)
[2022-05-01 05:45] LABS: Hematocrit 36.8 % (36.0-46.0); Mean Corpuscular Hgb Conc. 35.2 g/dL (32.0-36.0); Mean Corpuscular Volume 99.2 fL (80.0-100.0); Red Blood Cells 3.71 10^6/uL (4.0-5.20); Red Cell Distribution Width 13.5 % (11.8-14.3); White Blood Cell 3.9 10^3/uL (4.4-10.8)
[2022-05-01] MEDS: metroNIDAZOLE 500MG/100ML 100 ML IV SCH ×3 (05:57→21:41)
[2022-05-01 05:58] LABS: Band Neutrophils % (manual) 0; Basophils % (manual) 0 (0.0-2.0); Blast Cells 0; Metamyelocytes % 0; Myelocytes % 0; Promyelocytes % 0; Reactive Lymphocytes 0
[2022-05-01 05:59] LABS: BUN/Creatinine Ratio 24.3; Calcium 7.6 mg/dL (8.5-10.1); Magnesium 1.8 mg/dL (1.6-2.6); Potassium 4.1 mmol/L (3.5-5.1)
[2022-05-01] MEDS: ACCU-CHEK COMFORT CURVE STRIP VI SCH ×3 (06:00→18:14)
[2022-05-01 06:02] LABS: Phosphorus 2.8 mg/dL (2.5-4.90); Total Protein 3.3 g/dL (6.4-8.2)
[2022-05-01] MEDS: InsuLIN REG 1unit/0.01ml Soln (100units/ml) SC SCH ×3 (06:33→18:00)
[2022-05-01] MEDS: NOREPINEPHRINE 8 MG/250ML KIT 250 ML IV SCH (08:05)
[2022-05-01] MEDS: D5W/SOD CHL 0.45% 1,000 ML IV SCH ×3 (08:19→13:19)
[2022-05-01] MEDS: PANTOPRAZOLE 40 MG/10 ML VIAL INJ IV SCH (09:06)
[2022-05-01] MEDS: cefTRIAXone 1GM/50ML D5W 50 ML IV SCH (09:07)
[2022-05-01] MEDS: THIAMINE 100mg/ml INJ (200mg/2ml VIAL) IV SCH (09:07)
[2022-05-01 10:24] LABS: Eosinophils % (manual) 1 (0-7); Lymphocytes % (manual) 19 (10.0-50.0); Monocytes % (manual) 9 (0-12)
[2022-05-01] MEDS: CEFEPIME 2 GM in SODIUM CHL 0.9% 50 ML IV SCH (17:01)
[2022-05-01] MEDS ORDERED: TPN PER PHARMACY IV NR ×11 (20:00)
[2022-05-01] MEDS: BUDESONIDE (INHALATION) 0.5 MG/2 ML NEB NEB SCH (21:58)
[2022-05-02] VITALS (94 sets, daily range): BP systolic 91–126; BP diastolic 43–63
[2022-05-02] MEDS: ACCU-CHEK COMFORT CURVE STRIP VI SCH ×5 (00:20→23:39)
[2022-05-02] MEDS: PROPOFOL 100 ML IV SCH (00:30)
[2022-05-02] MEDS: CEFEPIME 2 GM in SODIUM CHL 0.9% 50 ML IV SCH ×2 (04:23→15:48)
[2022-05-02] MEDS: PHENYLEPHRINE IV 250 ML IV SCH ×3 (05:20→20:39)
[2022-05-02] MEDS: MIDAZOLAM DRIP 50 mg/50mL 50 ML IV SCH ×6 (05:21→20:39)
[2022-05-02] MEDS: InsuLIN REG 1unit/0.01ml Soln (100units/ml) SC SCH ×5 (05:46→23:39)
[2022-05-02] MEDS: BUDESONIDE (INHALATION) 0.5 MG/2 ML NEB NEB SCH ×2 (06:33→22:11)
[2022-05-02] MEDS: metroNIDAZOLE 500MG/100ML 100 ML IV SCH ×3 (08:15→22:09)
[2022-05-02] MEDS: PANTOPRAZOLE 40 MG/10 ML VIAL INJ IV SCH (09:07)
[2022-05-02] MEDS: THIAMINE 100mg/ml INJ (200mg/2ml VIAL) IV SCH (09:08)
[2022-05-02] MEDS: fentaNYL Drip 2500mCg/250mlNS 250 ML IV SCH ×2 (09:12→20:38)
[2022-05-02 09:44] LABS: White Blood Cell 7.8 10^3/uL (4.4-10.8)
[2022-05-02 09:46] LABS: Hematocrit 37.7 % (36.0-46.0); Mean Corpuscular Hgb Conc. 34.6 g/dL (32.0-36.0); Mean Corpuscular Volume 98.5 fL (80.0-100.0); Red Blood Cells 3.82 10^6/uL (4.0-5.20); Red Cell Distribution Width 13.6 % (11.8-14.3)
[2022-05-02 10:09] LABS: Basophils % (manual) 0 (0.0-2.0); Blast Cells 0; Eosinophils % (manual) 0 (0-7); Metamyelocytes % 0; Promyelocytes % 0; Reactive Lymphocytes 0
[2022-05-02] MEDS: D5W/SOD CHL 0.45% 1,000 ML IV SCH (10:17)
[2022-05-02 10:22] LABS: BUN/Creatinine Ratio 31.3; Bilirubin, Total 0.8 mg/dL (0.2-1.0); Magnesium 2.2 mg/dL (1.6-2.6); Phosphorus 2.2 mg/dL (2.5-4.90); Potassium 3.3 mmol/L (3.5-5.1); Total Protein 3.9 g/dL (6.4-8.2)
[2022-05-02] MEDS ORDERED: POTASSIUM PHOSPHATE 22 MEQ in SODIUM CHL 0.9% 100 ML IV ONE (11:15)
[2022-05-02] MEDS: FUROSEMIDE 100 MG/10ML VIAL IV SCH ×2 (14:09→18:22)
[2022-05-02] MEDS: ALBUMIN 25% 50 ML IV SCH ×2 (14:09→21:34)
[2022-05-02 15:34] LABS: Band Neutrophils % (manual) 32; Lymphocytes % (manual) 17 (10.0-50.0); Monocytes % (manual) 3 (0-12); Myelocytes % 1
[2022-05-02] MEDS ORDERED: TPN PER PHARMACY IV NR ×11 (20:00)
[2022-05-03] VITALS (105 sets, daily range): BP systolic 86–121; BP diastolic 34–59
[2022-05-03] MEDS: PROPOFOL 100 ML IV SCH (00:30)
[2022-05-03] MEDS: NOREPINEPHRINE 8 MG/250ML KIT 250 ML IV SCH (00:30)
[2022-05-03] MEDS: MIDAZOLAM DRIP 50 mg/50mL 50 ML IV SCH ×7 (03:35→22:24)
[2022-05-03] MEDS: CEFEPIME 2 GM in SODIUM CHL 0.9% 50 ML IV SCH ×2 (03:43→15:40)
[2022-05-03] MEDS: PHENYLEPHRINE IV 250 ML IV SCH (04:34)
[2022-05-03] MEDS: ALBUMIN 25% 50 ML IV SCH (05:41)
[2022-05-03] MEDS: FUROSEMIDE 100 MG/10ML VIAL IV SCH ×2 (05:42→17:50)
[2022-05-03] MEDS: InsuLIN REG 1unit/0.01ml Soln (100units/ml) SC SCH ×3 (05:44→17:51)
[2022-05-03] MEDS: ACCU-CHEK COMFORT CURVE STRIP VI SCH ×3 (05:45→17:51)
[2022-05-03] MEDS: metroNIDAZOLE 500MG/100ML 100 ML IV SCH ×3 (06:43→22:24)
[2022-05-03] MEDS: fentaNYL Drip 2500mCg/250mlNS 250 ML IV SCH ×2 (08:40→20:30)
[2022-05-03] MEDS: THIAMINE 100mg/ml INJ (200mg/2ml VIAL) IV SCH (09:53)
[2022-05-03] MEDS: PANTOPRAZOLE 40 MG/10 ML VIAL INJ IV SCH (09:53)
[2022-05-03] MEDS: BUDESONIDE (INHALATION) 0.5 MG/2 ML NEB NEB SCH ×2 (10:33→22:06)
[2022-05-03 11:15] LABS: Hematocrit 35.3 % (36.0-46.0); Hemoglobin 11.7 g/dL (12.2-16.2); Mean Corpuscular Hemoglobin 32.4 pg (28.0-32.0); Mean Corpuscular Hgb Conc. 33.1 g/dL (32.0-36.0); Mean Corpuscular Volume 97.8 fL (80.0-100.0); Red Blood Cells 3.61 10^6/uL (4.0-5.20); Red Cell Distribution Width 13.5 % (11.8-14.3); White Blood Cell 12.1 10^3/uL (4.4-10.8)
[2022-05-03 11:38] LABS: Basophils % (manual) 0 (0.0-2.0); Blast Cells 0; Eosinophils % (manual) 0 (0-7); Myelocytes % 0; Promyelocytes % 0; Reactive Lymphocytes 0
[2022-05-03 11:52] LABS: Sodium 138 mmol/L (136-145)
[2022-05-03 11:53] LABS: Alanine Aminotransferase < 6 U/L (13-56); Albumin 1.3 g/dL (3.4-5.0); Alkaline Phosphatase 52 U/L (45-117); Anion Gap 3 (5-15); Aspartate Aminotransferase 27 U/L (15-37); BUN/Creatinine Ratio 35.8; Bilirubin, Total 1.1 mg/dL (0.2-1.0); Blood Urea Nitrogen 48 mg/dL (7-18); Calcium 8.1 mg/dL (8.5-10.1); Carbon Dioxide 28 mmol/L (21-32); Chloride 107 mmol/L (98-107); GFR African American 52 mL/min; GFR Non-African American 43 mL/min; Glucose 125 mg/dL (74-106); Phosphorus 3.6 mg/dL (2.5-4.90); Total Protein 4.2 g/dL (6.4-8.2)
[2022-05-03 11:55] LABS: Potassium 2.8 mmol/L (3.5-5.1)
[2022-05-03 12:19] LABS: Band Neutrophils % (manual) 14; Lymphocytes % (manual) 5 (10.0-50.0); Metamyelocytes % 4; Monocytes % (manual) 4 (0-12)
[2022-05-03] MEDS: POTASSIUM CHL 20MEQ/100ML 100 ML IV SCH ×3 (12:33→15:58)
[2022-05-03] MEDS ORDERED: POTASSIUM EFFERVESENT TAB 25 MEQ GT ONE (17:00)
[2022-05-03] MEDS ORDERED: TPN PER PHARMACY IV NR ×11 (20:00)
[2022-05-03] MEDS: D5W/SOD CHL 0.45% 1,000 ML IV SCH (20:30)
[2022-05-04] VITALS (103 sets, daily range): BP systolic 89–119; BP diastolic 40–60
[2022-05-04] MEDS: ACCU-CHEK COMFORT CURVE STRIP VI SCH ×4 (00:04→17:41)
[2022-05-04] MEDS: PROPOFOL 100 ML IV SCH (00:30)
[2022-05-04] MEDS: NOREPINEPHRINE 8 MG/250ML KIT 250 ML IV SCH ×2 (00:30→15:08)
[2022-05-04] MEDS: MIDAZOLAM DRIP 50 mg/50mL 50 ML IV SCH ×5 (03:43→20:37)
[2022-05-04] MEDS: CEFEPIME 2 GM in SODIUM CHL 0.9% 50 ML IV SCH ×2 (03:43→16:06)
[2022-05-04] MEDS: InsuLIN REG 1unit/0.01ml Soln (100units/ml) SC SCH ×4 (06:00→17:41)
[2022-05-04] MEDS: metroNIDAZOLE 500MG/100ML 100 ML IV SCH ×3 (06:03→22:18)
[2022-05-04] MEDS: FUROSEMIDE 100 MG/10ML VIAL IV SCH (06:04)
[2022-05-04 06:10] LABS: Hematocrit 33.6 % (36.0-46.0); Hemoglobin 11.5 g/dL (12.2-16.2); Mean Corpuscular Hemoglobin 33.5 pg (28.0-32.0); Mean Corpuscular Hgb Conc. 34.3 g/dL (32.0-36.0); Mean Corpuscular Volume 97.5 fL (80.0-100.0); Red Blood Cells 3.44 10^6/uL (4.0-5.20); Red Cell Distribution Width 13.4 % (11.8-14.3); White Blood Cell 12.8 10^3/uL (4.4-10.8)
[2022-05-04 06:15] LABS: Basophils % (manual) 0 (0.0-2.0); Blast Cells 0; Promyelocytes % 0; Reactive Lymphocytes 0
[2022-05-04 06:25] LABS: Chloride 107 mmol/L (98-107); Potassium 3.3 mmol/L (3.5-5.1); Sodium 139 mmol/L (136-145)
[2022-05-04 06:36] LABS: Albumin 1.2 g/dL (3.4-5.0); Anion Gap 5 (5-15); BUN/Creatinine Ratio 43.3; Blood Urea Nitrogen 52 mg/dL (7-18); Calcium 7.7 mg/dL (8.5-10.1); Carbon Dioxide 27 mmol/L (21-32); GFR African American 59 mL/min; GFR Non-African American 49 mL/min; Glucose 125 mg/dL (74-106)
[2022-05-04 06:57] LABS: Alanine Aminotransferase < 6 U/L (13-56); Alkaline Phosphatase 60 U/L (45-117); Aspartate Aminotransferase 27 U/L (15-37); Bilirubin, Total 1.2 mg/dL (0.2-1.0); Phosphorus 3.6 mg/dL (2.5-4.90); Total Protein 3.6 g/dL (6.4-8.2)
[2022-05-04 07:28] LABS: Band Neutrophils % (manual) 52; Eosinophils % (manual) 2 (0-7); Lymphocytes % (manual) 7 (10.0-50.0); Metamyelocytes % 1; Monocytes % (manual) 2 (0-12); Myelocytes % 5
[2022-05-04] MEDS: PHENYLEPHRINE IV 250 ML IV SCH ×2 (08:40→10:56)
[2022-05-04] MEDS: PANTOPRAZOLE 40 MG/10 ML VIAL INJ IV SCH (10:07)
[2022-05-04] MEDS: POTASSIUM CHL 20MEQ/100ML 100 ML IV SCH ×2 (10:07→11:01)
[2022-05-04] MEDS: THIAMINE 100mg/ml INJ (200mg/2ml VIAL) IV SCH (10:07)
[2022-05-04] MEDS: BUDESONIDE (INHALATION) 0.5 MG/2 ML NEB NEB SCH ×2 (10:20→22:12)
[2022-05-04] MEDS: fentaNYL Drip 2500mCg/250mlNS 250 ML IV SCH (10:51)
[2022-05-04] MEDS ORDERED: ENOXAPARIN SOD 40 MG/0.4 ML SYRINGE SC ONE (14:15)
[2022-05-04] MEDS: IPRATROPIUM BROM 0.5 MG/2.5ML INH SOL NEB PRN ×2 (14:20→22:12)
[2022-05-04] MEDS: ALBUTEROL SULF 2.5 MG/0.5ML(0.5%) NEB SOLN NEB PRN ×2 (14:20→22:12)
[2022-05-04 15:58] LABS: INR 1.27 (0.9-1.15)
[2022-05-04] MEDS: FUROSEMIDE 20 MG/2 ML VIAL IV SCH (17:44)
[2022-05-04 18:43] LABS: Urine Bacteria FEW /hpf (None Seen); Urine Blood 2+ /uL (Negative); Urine Budding Yeast MODERATE /hpf (None Seen); Urine Mucus FEW (None Seen); Urine Specific Gravity 1.013 (1.001-1.035); Urine WBC 47 /hpf (0 - 5)
[2022-05-04] MEDS ORDERED: TPN PER PHARMACY IV NR ×9 (20:00)
[2022-05-05] VITALS (97 sets, daily range): BP systolic 83–170; BP diastolic 36–66
[2022-05-05] MEDS: ACCU-CHEK COMFORT CURVE STRIP VI SCH ×4 (00:08→18:00)
[2022-05-05] MEDS: MIDAZOLAM DRIP 50 mg/50mL 50 ML IV SCH ×4 (01:40→21:41)
[2022-05-05] MEDS: fentaNYL Drip 2500mCg/250mlNS 250 ML IV SCH ×2 (01:40→15:25)
[2022-05-05] MEDS: CEFEPIME 2 GM in SODIUM CHL 0.9% 50 ML IV SCH (04:09)
[2022-05-05] MEDS: InsuLIN REG 1unit/0.01ml Soln (100units/ml) SC SCH ×4 (06:00→18:00)
[2022-05-05] MEDS: metroNIDAZOLE 500MG/100ML 100 ML IV SCH (06:13)
[2022-05-05] MEDS: FUROSEMIDE 20 MG/2 ML VIAL IV SCH (06:19)
[2022-05-05 07:27] LABS: Albumin 1.2 g/dL (3.4-5.0); BUN/Creatinine Ratio 49.5; Bilirubin, Total 1.5 mg/dL (0.2-1.0); Calcium 7.9 mg/dL (8.5-10.1); Magnesium 2.3 mg/dL (1.6-2.6); Phosphorus 2.8 mg/dL (2.5-4.90); Potassium 3.2 mmol/L (3.5-5.1); Total Protein 4.4 g/dL (6.4-8.2)
[2022-05-05 08:01] LABS: Hematocrit 34.8 % (36.0-46.0); Hemoglobin 11.6 g/dL (12.2-16.2); Mean Corpuscular Hemoglobin 33.2 pg (28.0-32.0); Mean Corpuscular Hgb Conc. 33.3 g/dL (32.0-36.0); Mean Corpuscular Volume 99.6 fL (80.0-100.0); Red Cell Distribution Width 13.9 % (11.8-14.3); White Blood Cell 14.1 10^3/uL (4.4-10.8)
[2022-05-05 08:02] LABS: Basophils % (manual) 0 (0.0-2.0); Blast Cells 0; Eosinophils % (manual) 0 (0-7); Metamyelocytes % 0; Promyelocytes % 0; Reactive Lymphocytes 0
[2022-05-05] MEDS ORDERED: POTASSIUM PHOSPHATE 22 MEQ in SODIUM CHL 0.9% 100 ML IV ONE (09:00)
[2022-05-05 09:05] LABS: Band Neutrophils % (manual) 48; Lymphocytes % (manual) 12 (10.0-50.0); Monocytes % (manual) 3 (0-12); Myelocytes % 2
[2022-05-05] MEDS: BUDESONIDE (INHALATION) 0.5 MG/2 ML NEB NEB SCH ×2 (09:33→18:16)
[2022-05-05] MEDS: PROPOFOL 100 ML IV SCH (09:57)
[2022-05-05] MEDS: THIAMINE 100mg/ml INJ (200mg/2ml VIAL) IV SCH (10:20)
[2022-05-05] MEDS: PANTOPRAZOLE 40 MG/10 ML VIAL INJ IV SCH (10:24)
[2022-05-05] MEDS: ENOXAPARIN SOD 40 MG/0.4 ML SYRINGE SC SCH (10:24)
[2022-05-05] MEDS: D5W/SOD CHL 0.45% 1,000 ML IV SCH ×2 (12:05→15:49)
[2022-05-05] MEDS ORDERED: VANCOMYCIN PER PHARMACY 0 MG IV SCH (13:00)
[2022-05-05] MEDS ORDERED: MEROPENEM 1GM IVPB 100 ML IV ONE ×2 (13:00→16:00)
[2022-05-05 13:25] LABS: Basophils # (auto) 0 10 ^3/uL (0-0.2); Basophils % (auto) 0.4 % (0.0-2.0); Eosinophils # (auto) 0.2 10 ^3/uL (0-0.8); Eosinophils % (auto) 1.6 % (0.0-7.0); Hematocrit 34.1 % (36.0-46.0); Hemoglobin 11.5 g/dL (12.2-16.2); Lymphocytes # (auto) 0.5 10 ^3/uL (0.4-5.4); Mean Corpuscular Hemoglobin 33.2 pg (28.0-32.0); Mean Corpuscular Hgb Conc. 33.8 g/dL (32.0-36.0); Mean Corpuscular Volume 98.2 fL (80.0-100.0); Monocytes # (auto) 0.5 10 ^3/uL (0-1.3); Monocytes % (auto) 4.3 % (0.0-12.0); Neutrophils # (auto) 10.6 10 ^3/uL (1.6-8.6); Neutrophils % (auto) 89.7 % (37.0-80.0); Nucleated Red Blood Cells % 0.1 %; Red Blood Cells 3.47 10^6/uL (4.0-5.20); Red Cell Distribution Width 13.9 % (11.8-14.3); White Blood Cell 11.8 10^3/uL (4.4-10.8)
[2022-05-05] MEDS: VANCOMYCIN 1GM/250ML 250 ML IV SCH (14:29)
[2022-05-05] MEDS: ALBUMIN 25% 50 ML IV SCH ×2 (17:09→21:33)
[2022-05-05] MEDS: IPRATROPIUM BROM 0.5 MG/2.5ML INH SOL NEB PRN ×2 (18:16→22:12)
[2022-05-05] MEDS: ALBUTEROL SULF 2.5 MG/0.5ML(0.5%) NEB SOLN NEB PRN ×2 (18:16→22:12)
[2022-05-05] MEDS ORDERED: TPN PER PHARMACY IV NR ×11 (20:00)
[2022-05-05] MEDS: ACETAMINOPHEN 650 MG RECT SUPP PR PRN (20:20)
[2022-05-05] MEDS: MEROPENEM 1GM IVPB 100 ML IV SCH (21:40)
[2022-05-06] VITALS (108 sets, daily range): BP systolic 91–148; BP diastolic 41–92
[2022-05-06] MEDS: VANCOMYCIN 1GM/250ML 250 ML IV SCH ×3 (00:02→20:21)
[2022-05-06] MEDS: ACCU-CHEK COMFORT CURVE STRIP VI SCH ×4 (00:03→18:20)
[2022-05-06] MEDS: NOREPINEPHRINE 8 MG/250ML KIT 250 ML IV SCH (00:03)
[2022-05-06] MEDS: MIDAZOLAM DRIP 50 mg/50mL 50 ML IV SCH ×7 (01:30→23:30)
[2022-05-06] MEDS: ALBUMIN 25% 50 ML IV SCH ×2 (02:09→05:44)
[2022-05-06] MEDS: fentaNYL Drip 2500mCg/250mlNS 250 ML IV SCH ×2 (02:12→14:50)
[2022-05-06] MEDS: ALBUTEROL SULF 2.5 MG/0.5ML(0.5%) NEB SOLN NEB PRN ×3 (02:29→22:01)
[2022-05-06] MEDS: IPRATROPIUM BROM 0.5 MG/2.5ML INH SOL NEB PRN ×3 (02:30→22:01)
[2022-05-06] MEDS: InsuLIN REG 1unit/0.01ml Soln (100units/ml) SC SCH ×4 (05:45→18:00)
[2022-05-06] MEDS: MEROPENEM 1GM IVPB 100 ML IV SCH ×3 (05:48→22:14)
[2022-05-06 06:34] LABS: Albumin 1.8 g/dL (3.4-5.0); Magnesium 2.3 mg/dL (1.6-2.6); Potassium 3.1 mmol/L (3.5-5.1)
[2022-05-06 06:36] LABS: BUN/Creatinine Ratio 67.2
[2022-05-06 06:38] LABS: Bilirubin, Total 1.9 mg/dL (0.2-1.0); Phosphorus 2.5 mg/dL (2.5-4.90); Total Protein 4.9 g/dL (6.4-8.2)
[2022-05-06] MEDS ORDERED: POTASSIUM PHOSPHATE 44 MEQ in D5W 5% 250 ML IV ONE (09:00)
[2022-05-06] MEDS: PANTOPRAZOLE 40 MG/10 ML VIAL INJ IV SCH (10:02)
[2022-05-06] MEDS: ENOXAPARIN SOD 40 MG/0.4 ML SYRINGE SC SCH (10:02)
[2022-05-06] MEDS: THIAMINE 100mg/ml INJ (200mg/2ml VIAL) IV SCH (10:02)
[2022-05-06] MEDS: BUDESONIDE (INHALATION) 0.5 MG/2 ML NEB NEB SCH ×2 (10:38→22:01)
[2022-05-06] MEDS: PROPOFOL 100 ML IV SCH ×2 (14:41→20:29)
[2022-05-06] MEDS: D5W/SOD CHL 0.45% 1,000 ML IV SCH (19:30)
[2022-05-06] MEDS ORDERED: POTASSIUM ACETATE IV NR ×29 (20:00)
[2022-05-06] MEDS ORDERED: FAT EMULSION IV NR ×29 (20:00)
[2022-05-06] MEDS ORDERED: [UNRECOGNIZED DRUG - OTHER] IV NR ×29 (20:00)
[2022-05-06] MEDS ORDERED: TPN PER PHARMACY IV NR ×10 (20:00)
[2022-05-06] MEDS ORDERED: SODIUM PHOSPHATES IV NR ×29 (20:00)
[2022-05-07] VITALS (107 sets, daily range): BP systolic 83–117; BP diastolic 40–59
[2022-05-07] MEDS: PROPOFOL 100 ML IV SCH ×4 (02:00→23:06)
[2022-05-07] MEDS: fentaNYL Drip 2500mCg/250mlNS 250 ML IV SCH ×2 (03:00→13:37)
[2022-05-07] MEDS: MIDAZOLAM DRIP 50 mg/50mL 50 ML IV SCH ×5 (03:00→23:06)
[2022-05-07] MEDS: VANCOMYCIN 1GM/250ML 250 ML IV SCH ×2 (04:00→11:40)
[2022-05-07 05:05] LABS: Hematocrit 31.1 % (36.0-46.0); Hemoglobin 10.6 g/dL (12.2-16.2); Mean Corpuscular Hemoglobin 33.5 pg (28.0-32.0); Mean Corpuscular Hgb Conc. 34.1 g/dL (32.0-36.0); Mean Corpuscular Volume 98.2 fL (80.0-100.0); Red Blood Cells 3.16 10^6/uL (4.0-5.20); Red Cell Distribution Width 14.2 % (11.8-14.3); White Blood Cell 7.7 10^3/uL (4.4-10.8)
[2022-05-07 05:12] LABS: Basophils % (manual) 0 (0.0-2.0); Blast Cells 0; Promyelocytes % 0; Reactive Lymphocytes 0
[2022-05-07] MEDS: NOREPINEPHRINE 8 MG/250ML KIT 250 ML IV SCH (05:15)
[2022-05-07 05:36] LABS: Albumin 1.7 g/dL (3.4-5.0); BUN/Creatinine Ratio 72.3; Bilirubin, Total 1.8 mg/dL (0.2-1.0); Calcium 7.9 mg/dL (8.5-10.1); Magnesium 2.4 mg/dL (1.6-2.6); Phosphorus 4.1 mg/dL (2.5-4.90); Potassium 3.9 mmol/L (3.5-5.1); Total Protein 4.9 g/dL (6.4-8.2)
[2022-05-07] MEDS: IPRATROPIUM BROM 0.5 MG/2.5ML INH SOL NEB PRN ×3 (05:55→22:34)
[2022-05-07] MEDS: BUDESONIDE (INHALATION) 0.5 MG/2 ML NEB NEB SCH ×2 (05:55→18:14)
[2022-05-07] MEDS: ALBUTEROL SULF 2.5 MG/0.5ML(0.5%) NEB SOLN NEB PRN ×3 (05:55→22:35)
[2022-05-07] MEDS: ACCU-CHEK COMFORT CURVE STRIP VI SCH ×5 (06:00→23:43)
[2022-05-07] MEDS: MEROPENEM 1GM IVPB 100 ML IV SCH ×3 (06:00→20:59)
[2022-05-07] MEDS: InsuLIN REG 1unit/0.01ml Soln (100units/ml) SC SCH ×5 (06:43→23:43)
[2022-05-07 07:28] LABS: Band Neutrophils % (manual) 13; Eosinophils % (manual) 3 (0-7); Lymphocytes % (manual) 16 (10.0-50.0); Metamyelocytes % 1; Monocytes % (manual) 7 (0-12); Myelocytes % 1
[2022-05-07] MEDS: PANTOPRAZOLE 40 MG/10 ML VIAL INJ IV SCH (09:28)
[2022-05-07] MEDS: ENOXAPARIN SOD 40 MG/0.4 ML SYRINGE SC SCH (09:30)
[2022-05-07] MEDS: THIAMINE 100mg/ml INJ (200mg/2ml VIAL) IV SCH (09:31)
[2022-05-07] MEDS: ALBUMIN 25% 50 ML IV SCH ×2 (10:23→16:40)
[2022-05-07] MEDS ORDERED: TPN PER PHARMACY 0 ML IV SCH (12:00)
[2022-05-07] MEDS: MICAFUNGIN SODIUM 100 MG in SODIUM CHL 0.9% 100 ML IV SCH (16:30)
[2022-05-07] MEDS: TPN PER PHARMACY IV NR ×11 (20:58)
[2022-05-08] VITALS (101 sets, daily range): BP systolic 91–165; BP diastolic 42–73
[2022-05-08] MEDS: ALBUMIN 25% 50 ML IV SCH (01:36)
[2022-05-08] MEDS: MIDAZOLAM DRIP 50 mg/50mL 50 ML IV SCH ×4 (02:33→14:03)
[2022-05-08] MEDS: ALBUTEROL SULF 2.5 MG/0.5ML(0.5%) NEB SOLN NEB PRN ×5 (02:39→18:17)
[2022-05-08] MEDS: IPRATROPIUM BROM 0.5 MG/2.5ML INH SOL NEB PRN ×5 (02:39→18:17)
[2022-05-08] MEDS: NOREPINEPHRINE 8 MG/250ML KIT 250 ML IV SCH (02:55)
[2022-05-08] MEDS: PROPOFOL 100 ML IV SCH ×3 (02:55→21:40)
[2022-05-08] MEDS: fentaNYL Drip 2500mCg/250mlNS 250 ML IV SCH ×2 (03:26→16:35)
[2022-05-08 05:24] LABS: Basophils # (auto) 0.1 10 ^3/uL (0-0.2); Basophils % (auto) 1.2 % (0.0-2.0); Eosinophils # (auto) 0.1 10 ^3/uL (0-0.8); Eosinophils % (auto) 1.5 % (0.0-7.0); Hematocrit 30.1 % (36.0-46.0); Hemoglobin 10.1 g/dL (12.2-16.2); Lymphocytes # (auto) 0.8 10 ^3/uL (0.4-5.4); Mean Corpuscular Hgb Conc. 33.4 g/dL (32.0-36.0); Mean Corpuscular Volume 98.7 fL (80.0-100.0); Monocytes # (auto) 0.6 10 ^3/uL (0-1.3); Monocytes % (auto) 7.6 % (0.0-12.0); Neutrophils # (auto) 6.4 10 ^3/uL (1.6-8.6); Neutrophils % (auto) 79.7 % (37.0-80.0); Nucleated Red Blood Cells % 0.1 %; Red Blood Cells 3.05 10^6/uL (4.0-5.20); Red Cell Distribution Width 14.3 % (11.8-14.3); White Blood Cell 8.1 10^3/uL (4.4-10.8)
[2022-05-08 05:51] LABS: Potassium 4.5 mmol/L (3.5-5.1)
[2022-05-08] MEDS: ACCU-CHEK COMFORT CURVE STRIP VI SCH ×3 (05:52→18:26)
[2022-05-08] MEDS: MEROPENEM 1GM IVPB 100 ML IV SCH ×3 (05:56→21:26)
[2022-05-08] MEDS: InsuLIN REG 1unit/0.01ml Soln (100units/ml) SC SCH ×3 (05:57→18:00)
[2022-05-08 06:03] LABS: Albumin 1.9 g/dL (3.4-5.0); BUN/Creatinine Ratio 68.1; Bilirubin, Total 2.3 mg/dL (0.2-1.0); Calcium 7.9 mg/dL (8.5-10.1); Magnesium 2.6 mg/dL (1.6-2.6); Phosphorus 4.4 mg/dL (2.5-4.90); Total Protein 5.2 g/dL (6.4-8.2)
[2022-05-08] MEDS: BUDESONIDE (INHALATION) 0.5 MG/2 ML NEB NEB SCH ×2 (06:16→18:17)
[2022-05-08] MEDS: ENOXAPARIN SOD 40 MG/0.4 ML SYRINGE SC SCH (09:21)
[2022-05-08] MEDS: THIAMINE 100mg/ml INJ (200mg/2ml VIAL) IV SCH (09:21)
[2022-05-08] MEDS: PANTOPRAZOLE 40 MG/10 ML VIAL INJ IV SCH (09:21)
[2022-05-08] MEDS: MICAFUNGIN SODIUM 100 MG in SODIUM CHL 0.9% 100 ML IV SCH (09:37)
[2022-05-08] MEDS: D5W/SOD CHL 0.45% 1,000 ML IV SCH ×2 (10:52)
[2022-05-08] MEDS: VANCOMYCIN 1GM/250ML 250 ML IV SCH (10:53)
[2022-05-08] MEDS: TPN PER PHARMACY IV NR ×11 (19:42)
[2022-05-08] MEDS ORDERED: TPN PER PHARMACY IV NR ×9 (20:00)
[2022-05-09] VITALS (104 sets, daily range): BP systolic 88–177; BP diastolic 40–86
[2022-05-09] MEDS: ACCU-CHEK COMFORT CURVE STRIP VI SCH ×6 (00:23→23:56)
[2022-05-09] MEDS: NOREPINEPHRINE 8 MG/250ML KIT 250 ML IV SCH (00:30)
[2022-05-09] MEDS: fentaNYL Drip 2500mCg/250mlNS 250 ML IV SCH ×2 (03:35→16:27)
[2022-05-09] MEDS: MIDAZOLAM DRIP 50 mg/50mL 50 ML IV SCH ×5 (03:41→22:06)
[2022-05-09] MEDS: PROPOFOL 100 ML IV SCH ×3 (04:30→20:02)
[2022-05-09] MEDS: MEROPENEM 1GM IVPB 100 ML IV SCH ×3 (05:57→22:05)
[2022-05-09] MEDS: InsuLIN REG 1unit/0.01ml Soln (100units/ml) SC SCH ×6 (05:58→23:56)
[2022-05-09] MEDS: D5W/SOD CHL 0.45% 1,000 ML IV SCH (06:09)
[2022-05-09 06:23] LABS: Hematocrit 28.6 % (36.0-46.0); Hemoglobin 9.7 g/dL (12.2-16.2); Mean Corpuscular Hemoglobin 33.5 pg (28.0-32.0); Mean Corpuscular Volume 98.4 fL (80.0-100.0); Red Blood Cells 2.91 10^6/uL (4.0-5.20); White Blood Cell 7.5 10^3/uL (4.4-10.8)
[2022-05-09 06:29] LABS: Albumin 1.6 g/dL (3.4-5.0); Basophils % (manual) 0 (0.0-2.0); Blast Cells 0; Calcium 8.1 mg/dL (8.5-10.1); Magnesium 2.3 mg/dL (1.6-2.6); Potassium 4.9 mmol/L (3.5-5.1); Promyelocytes % 0; Reactive Lymphocytes 0
[2022-05-09 06:31] LABS: BUN/Creatinine Ratio 59.2
[2022-05-09] MEDS: BUDESONIDE (INHALATION) 0.5 MG/2 ML NEB NEB SCH ×2 (06:37→19:17)
[2022-05-09] MEDS: ALBUTEROL SULF 2.5 MG/0.5ML(0.5%) NEB SOLN NEB PRN ×2 (06:37→19:17)
[2022-05-09 06:42] LABS: Bilirubin, Total 2.3 mg/dL (0.2-1.0); Phosphorus 5.2 mg/dL (2.5-4.90); Total Protein 4.7 g/dL (6.4-8.2)
[2022-05-09 08:52] LABS: Band Neutrophils % (manual) 51; Eosinophils % (manual) 1 (0-7); Lymphocytes % (manual) 15 (10.0-50.0); Metamyelocytes % 1; Monocytes % (manual) 16 (0-12); Myelocytes % 3
[2022-05-09] MEDS: PANTOPRAZOLE 40 MG/10 ML VIAL INJ IV SCH (10:12)
[2022-05-09] MEDS: THIAMINE 100mg/ml INJ (200mg/2ml VIAL) IV SCH (10:13)
[2022-05-09] MEDS: MICAFUNGIN SODIUM 100 MG in SODIUM CHL 0.9% 100 ML IV SCH (10:13)
[2022-05-09] MEDS: ENOXAPARIN SOD 40 MG/0.4 ML SYRINGE SC SCH (10:13)
[2022-05-09] MEDS: VANCOMYCIN 1GM/250ML 250 ML IV SCH (11:44)
[2022-05-09] MEDS: IPRATROPIUM BROM 0.5 MG/2.5ML INH SOL NEB PRN (19:17)
[2022-05-09] MEDS: TPN PER PHARMACY IV NR ×6 (19:59)
[2022-05-10] VITALS (105 sets, daily range): BP systolic 96–148; BP diastolic 50–78
[2022-05-10] MEDS: NOREPINEPHRINE 8 MG/250ML KIT 250 ML IV SCH (03:55)
[2022-05-10] MEDS: MEROPENEM 1GM IVPB 100 ML IV SCH ×3 (05:48→21:51)
[2022-05-10] MEDS: InsuLIN REG 1unit/0.01ml Soln (100units/ml) SC SCH ×3 (05:48→17:46)
[2022-05-10] MEDS: ACCU-CHEK COMFORT CURVE STRIP VI SCH ×3 (05:49→18:18)
[2022-05-10 06:15] LABS: Hematocrit 29.6 % (36.0-46.0); Mean Corpuscular Hgb Conc. 33.7 g/dL (32.0-36.0); Red Blood Cells 3.02 10^6/uL (4.0-5.20); Red Cell Distribution Width 14.3 % (11.8-14.3); White Blood Cell 8.2 10^3/uL (4.4-10.8)
[2022-05-10 06:31] LABS: INR 1.15 (0.9-1.15); Partial Thromboplastin Time 32.3 sec (24.6-33.4)
[2022-05-10 06:32] LABS: Albumin 1.4 g/dL (3.4-5.0); Calcium 8.5 mg/dL (8.5-10.1); Magnesium 2.3 mg/dL (1.6-2.6); Potassium 4.3 mmol/L (3.5-5.1)
[2022-05-10 06:34] LABS: BUN/Creatinine Ratio 57.9
[2022-05-10 06:37] LABS: Bilirubin, Total 2.3 mg/dL (0.2-1.0); Phosphorus 3.1 mg/dL (2.5-4.90); Total Protein 5.8 g/dL (6.4-8.2)
[2022-05-10 06:56] LABS: Basophils % (manual) 0 (0.0-2.0); Blast Cells 0; Promyelocytes % 0; Reactive Lymphocytes 0
[2022-05-10 08:16] LABS: Band Neutrophils % (manual) 68; Eosinophils % (manual) 2 (0-7); Lymphocytes % (manual) 10 (10.0-50.0); Metamyelocytes % 2; Monocytes % (manual) 7 (0-12); Myelocytes % 1
[2022-05-10] MEDS: THIAMINE 100mg/ml INJ (200mg/2ml VIAL) IV SCH (10:05)
[2022-05-10] MEDS: BUDESONIDE (INHALATION) 0.5 MG/2 ML NEB NEB SCH ×2 (10:05→22:14)
[2022-05-10] MEDS: ENOXAPARIN SOD 40 MG/0.4 ML SYRINGE SC SCH (10:05)
[2022-05-10] MEDS: PANTOPRAZOLE 40 MG/10 ML VIAL INJ IV SCH (10:05)
[2022-05-10] MEDS: MICAFUNGIN SODIUM 100 MG in SODIUM CHL 0.9% 100 ML IV SCH (10:08)
[2022-05-10] MEDS: VANCOMYCIN 1GM/250ML 250 ML IV SCH (11:00)
[2022-05-10] MEDS: D5W/SOD CHL 0.45% 1,000 ML IV SCH ×2 (12:00→22:02)
[2022-05-10] MEDS: TPN PER PHARMACY IV NR ×6 (19:53)
[2022-05-10] MEDS ORDERED: TPN PER PHARMACY IV NR ×7 (20:00)
[2022-05-10] MEDS: MIDAZOLAM DRIP 50 mg/50mL 50 ML IV SCH (21:51)
[2022-05-10] MEDS: ALBUTEROL SULF 2.5 MG/0.5ML(0.5%) NEB SOLN NEB PRN (22:16)
[2022-05-10] MEDS: IPRATROPIUM BROM 0.5 MG/2.5ML INH SOL NEB PRN (22:16)
[2022-05-10] MEDS: fentaNYL Drip 2500mCg/250mlNS 250 ML IV SCH (23:03)
[2022-05-11] VITALS (107 sets, daily range): BP systolic 97–179; BP diastolic 48–84
[2022-05-11] MEDS: PROPOFOL 100 ML IV SCH ×2 (00:09→23:52)
[2022-05-11] MEDS: NOREPINEPHRINE 8 MG/250ML KIT 250 ML IV SCH ×2 (00:09→23:53)
[2022-05-11] MEDS: MEROPENEM 1GM IVPB 100 ML IV SCH ×3 (05:52→22:02)
[2022-05-11] MEDS: ACCU-CHEK COMFORT CURVE STRIP VI SCH ×4 (05:52→23:46)
[2022-05-11] MEDS: InsuLIN REG 1unit/0.01ml Soln (100units/ml) SC SCH ×5 (05:52→23:46)
[2022-05-11 06:12] LABS: Hematocrit 28.4 % (36.0-46.0); Hemoglobin 9.6 g/dL (12.2-16.2); Mean Corpuscular Hemoglobin 32.7 pg (28.0-32.0); Mean Corpuscular Hgb Conc. 33.9 g/dL (32.0-36.0); Mean Corpuscular Volume 96.4 fL (80.0-100.0); Red Blood Cells 2.94 10^6/uL (4.0-5.20); Red Cell Distribution Width 13.8 % (11.8-14.3); White Blood Cell 5.9 10^3/uL (4.4-10.8)
[2022-05-11 06:21] LABS: Albumin 1.4 g/dL (3.4-5.0); Calcium 7.9 mg/dL (8.5-10.1); Magnesium 1.8 mg/dL (1.6-2.6)
[2022-05-11 06:27] LABS: Bilirubin, Total 1.8 mg/dL (0.2-1.0); Phosphorus 3.1 mg/dL (2.5-4.90); Total Protein 4.8 g/dL (6.4-8.2)
[2022-05-11] MEDS: ACETAMINOPHEN 650 MG RECT SUPP PR PRN (06:31)
[2022-05-11 06:36] LABS: Basophils % (manual) 0 (0.0-2.0); Blast Cells 0; Eosinophils % (manual) 0 (0-7); Promyelocytes % 0; Reactive Lymphocytes 0
[2022-05-11] MEDS: BUDESONIDE (INHALATION) 0.5 MG/2 ML NEB NEB SCH ×2 (06:37→17:58)
[2022-05-11] MEDS: IPRATROPIUM BROM 0.5 MG/2.5ML INH SOL NEB PRN ×2 (06:37→17:57)
[2022-05-11] MEDS: ALBUTEROL SULF 2.5 MG/0.5ML(0.5%) NEB SOLN NEB PRN ×2 (06:37→17:57)
[2022-05-11 07:38] LABS: Band Neutrophils % (manual) 30; Lymphocytes % (manual) 17 (10.0-50.0); Metamyelocytes % 6; Monocytes % (manual) 4 (0-12); Myelocytes % 4
[2022-05-11] MEDS: PANTOPRAZOLE 40 MG/10 ML VIAL INJ IV SCH (10:34)
[2022-05-11] MEDS: THIAMINE 100mg/ml INJ (200mg/2ml VIAL) IV SCH (10:34)
[2022-05-11] MEDS: VANCOMYCIN 1GM/250ML 250 ML IV SCH (10:35)
[2022-05-11] MEDS: ENOXAPARIN SOD 40 MG/0.4 ML SYRINGE SC SCH (10:35)
[2022-05-11] MEDS: MICAFUNGIN SODIUM 100 MG in SODIUM CHL 0.9% 100 ML IV SCH (10:36)
[2022-05-11] MEDS: fentaNYL Drip 2500mCg/250mlNS 250 ML IV SCH ×2 (11:17→22:11)
[2022-05-11] MEDS ORDERED: TPN PER PHARMACY IV NR ×8 (20:00)
[2022-05-11] MEDS: MIDAZOLAM DRIP 50 mg/50mL 50 ML IV SCH (22:02)
[2022-05-12] VITALS (102 sets, daily range): BP systolic 100–189; BP diastolic 37–94
[2022-05-12 05:34] LABS: Potassium 3.8 mmol/L (3.5-5.1)
[2022-05-12 05:38] LABS: Albumin 1.3 g/dL (3.4-5.0); BUN/Creatinine Ratio 57.8; Calcium 8.5 mg/dL (8.5-10.1)
[2022-05-12] MEDS: InsuLIN REG 1unit/0.01ml Soln (100units/ml) SC SCH ×3 (06:00→18:00)
[2022-05-12] MEDS: D5W/SOD CHL 0.45% 1,000 ML IV SCH (06:04)
[2022-05-12] MEDS: ACCU-CHEK COMFORT CURVE STRIP VI SCH ×3 (06:04→18:00)
[2022-05-12] MEDS: MEROPENEM 1GM IVPB 100 ML IV SCH ×3 (06:04→20:59)
[2022-05-12 06:08] LABS: Bilirubin, Total 1.7 mg/dL (0.2-1.0); Phosphorus 3.6 mg/dL (2.5-4.90); Total Protein 5.8 g/dL (6.4-8.2)
[2022-05-12] MEDS: ALBUTEROL SULF 2.5 MG/0.5ML(0.5%) NEB SOLN NEB PRN ×2 (06:20→22:21)
[2022-05-12] MEDS: BUDESONIDE (INHALATION) 0.5 MG/2 ML NEB NEB SCH ×2 (06:21→22:21)
[2022-05-12] MEDS: IPRATROPIUM BROM 0.5 MG/2.5ML INH SOL NEB PRN ×2 (06:21→22:21)
[2022-05-12] MEDS ORDERED: MORPHINE SULFATE INJ 2 MG/ml SYRG IV PRN (10:00)
[2022-05-12] MEDS: ENOXAPARIN SOD 40 MG/0.4 ML SYRINGE SC SCH (10:39)
[2022-05-12] MEDS: PANTOPRAZOLE 40 MG/10 ML VIAL INJ IV SCH (10:39)
[2022-05-12] MEDS: THIAMINE 100mg/ml INJ (200mg/2ml VIAL) IV SCH (10:39)
[2022-05-12] MEDS: VANCOMYCIN 1GM/250ML 250 ML IV SCH (10:40)
[2022-05-12] MEDS: MICAFUNGIN SODIUM 100 MG in SODIUM CHL 0.9% 100 ML IV SCH (10:40)
[2022-05-12] MEDS ORDERED: TPN PER PHARMACY IV NR ×9 (20:00)
[2022-05-12] MEDS: MIDAZOLAM DRIP 50 mg/50mL 50 ML IV SCH (21:37)
[2022-05-12] MEDS: PROPOFOL 100 ML IV SCH (22:41)
[2022-05-13] VITALS (105 sets, daily range): BP systolic 86–183; BP diastolic 40–90
[2022-05-13] MEDS: D5W/SOD CHL 0.45% 1,000 ML IV SCH ×2 (00:04→21:56)
[2022-05-13] MEDS: ACCU-CHEK COMFORT CURVE STRIP VI SCH ×4 (00:13→18:24)
[2022-05-13] MEDS: fentaNYL Drip 2500mCg/250mlNS 250 ML IV SCH ×2 (00:13→16:00)
[2022-05-13] MEDS: NOREPINEPHRINE 8 MG/250ML KIT 250 ML IV SCH (00:17)
[2022-05-13] MEDS: InsuLIN REG 1unit/0.01ml Soln (100units/ml) SC SCH ×4 (06:00→18:00)
[2022-05-13] MEDS: BUDESONIDE (INHALATION) 0.5 MG/2 ML NEB NEB SCH ×2 (06:07→18:30)
[2022-05-13] MEDS: ALBUTEROL SULF 2.5 MG/0.5ML(0.5%) NEB SOLN NEB PRN ×3 (06:07→22:10)
[2022-05-13] MEDS: IPRATROPIUM BROM 0.5 MG/2.5ML INH SOL NEB PRN ×3 (06:07→22:10)
[2022-05-13] MEDS: MEROPENEM 1GM IVPB 100 ML IV SCH ×3 (06:31→21:56)
[2022-05-13] MEDS: PROPOFOL 100 ML IV SCH ×4 (06:31→21:56)
[2022-05-13 07:20] LABS: Albumin 1.2 g/dL (3.4-5.0); BUN/Creatinine Ratio 56.3; Calcium 8.2 mg/dL (8.5-10.1); Phosphorus 4.5 mg/dL (2.5-4.90); Potassium 3.6 mmol/L (3.5-5.1)
[2022-05-13 07:23] LABS: Bilirubin, Total 1.2 mg/dL (0.2-1.0); Total Protein 5.8 g/dL (6.4-8.2)
[2022-05-13] MEDS: MICAFUNGIN SODIUM 100 MG in SODIUM CHL 0.9% 100 ML IV SCH (10:49)
[2022-05-13] MEDS: PANTOPRAZOLE 40 MG/10 ML VIAL INJ IV SCH (10:49)
[2022-05-13] MEDS: THIAMINE 100mg/ml INJ (200mg/2ml VIAL) IV SCH (10:49)
[2022-05-13] MEDS: ENOXAPARIN SOD 40 MG/0.4 ML SYRINGE SC SCH (10:49)
[2022-05-13] MEDS: VANCOMYCIN 1GM/250ML 250 ML IV SCH (10:55)
[2022-05-13] MEDS ORDERED: IOHEXOL 300 MG/ML 100ML BOTTLE IJ ONE (15:49)
[2022-05-13] MEDS: LIDOCAINE 1% (LOCAL ANESTH.) PF 5ml SDV ID ONE ×2 (17:15→18:00)
[2022-05-13] MEDS ORDERED: TPN PER PHARMACY IV NR ×9 (20:00)
[2022-05-13] MEDS: SODIUM CHLOR 0.9% PF (SALINE LOCK) 10ML VIAL/SYR IV SCH (21:56)
[2022-05-13] MEDS: MIDAZOLAM DRIP 50 mg/50mL 50 ML IV SCH (22:15)
[2022-05-14] VITALS (86 sets, daily range): BP systolic 103–165; BP diastolic 45–86
[2022-05-14] MEDS: fentaNYL Drip 2500mCg/250mlNS 250 ML IV SCH ×3 (00:21→22:14)
[2022-05-14] MEDS: NOREPINEPHRINE 8 MG/250ML KIT 250 ML IV SCH (00:30)
[2022-05-14] MEDS: PROPOFOL 100 ML IV SCH ×6 (00:54→20:40)
[2022-05-14] MEDS: ALBUTEROL SULF 2.5 MG/0.5ML(0.5%) NEB SOLN NEB PRN ×4 (02:31→22:27)
[2022-05-14] MEDS: IPRATROPIUM BROM 0.5 MG/2.5ML INH SOL NEB PRN ×4 (02:31→22:27)
[2022-05-14] MEDS: MEROPENEM 1GM IVPB 100 ML IV SCH ×3 (05:46→21:40)
[2022-05-14] MEDS: InsuLIN REG 1unit/0.01ml Soln (100units/ml) SC SCH ×4 (05:49→17:42)
[2022-05-14] MEDS: ACCU-CHEK COMFORT CURVE STRIP VI SCH ×4 (05:49→17:42)
[2022-05-14 06:16] LABS: Basophils # (auto) 0.1 10 ^3/uL (0-0.2); Basophils % (auto) 1.1 % (0.0-2.0); Eosinophils # (auto) 0.1 10 ^3/uL (0-0.8); Eosinophils % (auto) 1.3 % (0.0-7.0); Hematocrit 25.5 % (36.0-46.0); Hemoglobin 8.9 g/dL (12.2-16.2); Lymphocytes # (auto) 0.8 10 ^3/uL (0.4-5.4); Lymphocytes % (auto) 9.9 % (10.0-50.0); Mean Corpuscular Hgb Conc. 34.9 g/dL (32.0-36.0); Mean Corpuscular Volume 97.4 fL (80.0-100.0); Monocytes # (auto) 0.7 10 ^3/uL (0-1.3); Monocytes % (auto) 8.4 % (0.0-12.0); Neutrophils # (auto) 6.3 10 ^3/uL (1.6-8.6); Neutrophils % (auto) 79.3 % (37.0-80.0); Nucleated Red Blood Cells % 0.1 %; Red Blood Cells 2.62 10^6/uL (4.0-5.20); Red Cell Distribution Width 14.3 % (11.8-14.3)
[2022-05-14 06:45] LABS: Albumin 1.1 g/dL (3.4-5.0); Calcium 7.1 mg/dL (8.5-10.1); Magnesium 1.8 mg/dL (1.6-2.6); Phosphorus 4.2 mg/dL (2.5-4.90); Potassium 3.6 mmol/L (3.5-5.1)
[2022-05-14 06:48] LABS: Bilirubin, Total 1.1 mg/dL (0.2-1.0); Total Protein 5.3 g/dL (6.4-8.2)
[2022-05-14] MEDS ORDERED: [UNRECOGNIZED DRUG - OTHER] ONE (08:32)
[2022-05-14] MEDS: BUDESONIDE (INHALATION) 0.5 MG/2 ML NEB NEB SCH ×2 (09:37→22:27)
[2022-05-14] MEDS ORDERED: FUROSEMIDE 20 MG/2 ML VIAL IV ONE (10:00)
[2022-05-14] MEDS: PANTOPRAZOLE 40 MG/10 ML VIAL INJ IV SCH (10:48)
[2022-05-14] MEDS: VANCOMYCIN 1GM/250ML 250 ML IV SCH (10:48)
[2022-05-14] MEDS: THIAMINE 100mg/ml INJ (200mg/2ml VIAL) IV SCH (10:48)
[2022-05-14] MEDS: SODIUM CHLOR 0.9% PF (SALINE LOCK) 10ML VIAL/SYR IV SCH ×2 (10:49→21:41)
[2022-05-14] MEDS: ENOXAPARIN SOD 40 MG/0.4 ML SYRINGE SC SCH (10:49)
[2022-05-14] MEDS: MICAFUNGIN SODIUM 100 MG in SODIUM CHL 0.9% 100 ML IV SCH (10:50)
[2022-05-14] MEDS: ALBUMIN 25% 100 ML IV SCH ×2 (10:50→17:47)
[2022-05-14] MEDS: MAGNESIUM SULFATE 1GM/100ML 100 ML IV SCH ×2 (10:51→12:02)
[2022-05-14] MEDS: POTASSIUM CHL 20MEQ/100ML 100 ML IV SCH ×2 (10:52→14:47)
[2022-05-14] MEDS: D5W/SOD CHL 0.45% 1,000 ML IV SCH (16:00)
[2022-05-14] MEDS ORDERED: TPN PER PHARMACY IV NR ×9 (20:00)
[2022-05-14] MEDS: MIDAZOLAM DRIP 50 mg/50mL 50 ML IV SCH ×2 (22:15→23:08)
[2022-05-15] VITALS (94 sets, daily range): BP systolic 98–145; BP diastolic 42–71
[2022-05-15] MEDS: ACCU-CHEK COMFORT CURVE STRIP VI SCH ×5 (00:11→23:44)
[2022-05-15] MEDS: NOREPINEPHRINE 8 MG/250ML KIT 250 ML IV SCH (00:30)
[2022-05-15] MEDS: ALBUMIN 25% 100 ML IV SCH (01:52)
[2022-05-15] MEDS: PROPOFOL 100 ML IV SCH ×7 (01:52→22:35)
[2022-05-15] MEDS: VANCOMYCIN 1GM/250ML 250 ML IV SCH ×2 (03:38→19:14)
[2022-05-15 05:46] LABS: Basophils # (auto) 0.1 10 ^3/uL (0-0.2); Eosinophils # (auto) 0.1 10 ^3/uL (0-0.8); Eosinophils % (auto) 2.3 % (0.0-7.0); Lymphocytes # (auto) 0.8 10 ^3/uL (0.4-5.4); Mean Corpuscular Hgb Conc. 33.1 g/dL (32.0-36.0); Monocytes # (auto) 0.7 10 ^3/uL (0-1.3); Neutrophils # (auto) 4.6 10 ^3/uL (1.6-8.6); Nucleated Red Blood Cells % 0.1 %; Red Blood Cells 2.48 10^6/uL (4.0-5.20)
[2022-05-15 05:49] LABS: Hematocrit 24.5 % (36.0-46.0); Hemoglobin 8.1 g/dL (12.2-16.2); Lymphocytes % (auto) 13.1 % (10.0-50.0); Mean Corpuscular Hemoglobin 32.7 pg (28.0-32.0); Mean Corpuscular Volume 98.9 fL (80.0-100.0); Monocytes % (auto) 10.5 % (0.0-12.0); Neutrophils % (auto) 73.1 % (37.0-80.0); Red Cell Distribution Width 14.6 % (11.8-14.3); White Blood Cell 6.2 10^3/uL (4.4-10.8)
[2022-05-15] MEDS: MEROPENEM 1GM IVPB 100 ML IV SCH (05:50)
[2022-05-15] MEDS: MIDAZOLAM DRIP 50 mg/50mL 50 ML IV SCH ×2 (05:51→22:31)
[2022-05-15 05:59] LABS: Potassium 4.1 mmol/L (3.5-5.1)
[2022-05-15] MEDS: InsuLIN REG 1unit/0.01ml Soln (100units/ml) SC SCH ×5 (06:00→23:44)
[2022-05-15 06:08] LABS: Albumin 2.1 g/dL (3.4-5.0); Calcium 8.1 mg/dL (8.5-10.1); Magnesium 2.2 mg/dL (1.6-2.6)
[2022-05-15 06:11] LABS: Bilirubin, Total 1.3 mg/dL (0.2-1.0); Phosphorus 4.6 mg/dL (2.5-4.90); Total Protein 5.5 g/dL (6.4-8.2)
[2022-05-15] MEDS: ALBUTEROL SULF 2.5 MG/0.5ML(0.5%) NEB SOLN NEB PRN ×2 (06:29→22:12)
[2022-05-15] MEDS: IPRATROPIUM BROM 0.5 MG/2.5ML INH SOL NEB PRN ×2 (06:29→22:12)
[2022-05-15] MEDS: BUDESONIDE (INHALATION) 0.5 MG/2 ML NEB NEB SCH ×2 (06:30→22:12)
[2022-05-15] MEDS: ENOXAPARIN SOD 40 MG/0.4 ML SYRINGE SC SCH (10:00)
[2022-05-15] MEDS: PANTOPRAZOLE 40 MG/10 ML VIAL INJ IV SCH (10:07)
[2022-05-15] MEDS: MICAFUNGIN SODIUM 100 MG in SODIUM CHL 0.9% 100 ML IV SCH (10:07)
[2022-05-15] MEDS: THIAMINE 100mg/ml INJ (200mg/2ml VIAL) IV SCH (10:07)
[2022-05-15] MEDS: SODIUM CHLOR 0.9% PF (SALINE LOCK) 10ML VIAL/SYR IV SCH ×2 (10:08→22:30)
[2022-05-15] MEDS: fentaNYL Drip 2500mCg/250mlNS 250 ML IV SCH ×2 (11:07→22:34)
[2022-05-15] MEDS: cefTRIAXone 1GM/50ML D5W 50 ML IV SCH (14:48)
[2022-05-15] MEDS: D5W/SOD CHL 0.45% 1,000 ML IV SCH (16:55)
[2022-05-15] MEDS: TPN PER PHARMACY IV NR ×8 (20:08)
[2022-05-16] VITALS (105 sets, daily range): BP systolic 87–162; BP diastolic 41–78
[2022-05-16] MEDS: NOREPINEPHRINE 8 MG/250ML KIT 250 ML IV SCH (00:30)
[2022-05-16] MEDS: PROPOFOL 100 ML IV SCH ×4 (02:17→16:14)
[2022-05-16 05:32] LABS: Basophils # (auto) 0.1 10 ^3/uL (0-0.2); Basophils % (auto) 0.7 % (0.0-2.0); Eosinophils # (auto) 0.2 10 ^3/uL (0-0.8); Eosinophils % (auto) 2.4 % (0.0-7.0); Hematocrit 25.1 % (36.0-46.0); Hemoglobin 8.5 g/dL (12.2-16.2); Lymphocytes # (auto) 0.9 10 ^3/uL (0.4-5.4); Lymphocytes % (auto) 11.6 % (10.0-50.0); Mean Corpuscular Hemoglobin 33.1 pg (28.0-32.0); Mean Corpuscular Hgb Conc. 34.1 g/dL (32.0-36.0); Monocytes # (auto) 0.8 10 ^3/uL (0-1.3); Monocytes % (auto) 10.1 % (0.0-12.0); Neutrophils # (auto) 5.8 10 ^3/uL (1.6-8.6); Neutrophils % (auto) 75.2 % (37.0-80.0); Nucleated Red Blood Cells % 0.2 %; Red Blood Cells 2.58 10^6/uL (4.0-5.20); Red Cell Distribution Width 13.9 % (11.8-14.3); White Blood Cell 7.7 10^3/uL (4.4-10.8)
[2022-05-16 05:46] LABS: Albumin 1.7 g/dL (3.4-5.0); BUN/Creatinine Ratio 53.6; Calcium 7.9 mg/dL (8.5-10.1); Potassium 4.1 mmol/L (3.5-5.1)
[2022-05-16 05:49] LABS: Bilirubin, Total 1.1 mg/dL (0.2-1.0); Phosphorus 4.7 mg/dL (2.5-4.90); Total Protein 5.2 g/dL (6.4-8.2)
[2022-05-16] MEDS: InsuLIN REG 1unit/0.01ml Soln (100units/ml) SC SCH ×3 (06:00→17:00)
[2022-05-16] MEDS: ACCU-CHEK COMFORT CURVE STRIP VI SCH ×3 (06:12→17:00)
[2022-05-16] MEDS: ALBUTEROL SULF 2.5 MG/0.5ML(0.5%) NEB SOLN NEB PRN (06:21)
[2022-05-16] MEDS: IPRATROPIUM BROM 0.5 MG/2.5ML INH SOL NEB PRN (06:21)
[2022-05-16] MEDS: BUDESONIDE (INHALATION) 0.5 MG/2 ML NEB NEB SCH ×2 (06:21→22:13)
[2022-05-16] MEDS: PANTOPRAZOLE 40 MG/10 ML VIAL INJ IV SCH (08:09)
[2022-05-16] MEDS: D5W/SOD CHL 0.45% 1,000 ML IV SCH (08:09)
[2022-05-16] MEDS: cefTRIAXone 1GM/50ML D5W 50 ML IV SCH (08:09)
[2022-05-16] MEDS: SODIUM CHLOR 0.9% PF (SALINE LOCK) 10ML VIAL/SYR IV SCH ×2 (08:10→20:50)
[2022-05-16] MEDS: THIAMINE 100mg/ml INJ (200mg/2ml VIAL) IV SCH (08:10)
[2022-05-16] MEDS: ENOXAPARIN SOD 40 MG/0.4 ML SYRINGE SC SCH (08:15)
[2022-05-16] MEDS: MICAFUNGIN SODIUM 100 MG in SODIUM CHL 0.9% 100 ML IV SCH (08:55)
[2022-05-16] MEDS ORDERED: FUROSEMIDE 40 MG/4 ML VIAL IV ONE (10:45)
[2022-05-16] MEDS: VANCOMYCIN 1GM/250ML 250 ML IV SCH (10:58)
[2022-05-16] MEDS: fentaNYL Drip 2500mCg/250mlNS 250 ML IV SCH (16:14)
[2022-05-16] MEDS ORDERED: TPN PER PHARMACY IV NR ×8 (20:00)
[2022-05-16] MEDS: TPN PER PHARMACY IV NR ×8 (20:13)
[2022-05-17] VITALS (91 sets, daily range): BP systolic 93–188; BP diastolic 44–94
[2022-05-17] MEDS: NOREPINEPHRINE 8 MG/250ML KIT 250 ML IV SCH (00:30)
[2022-05-17] MEDS: PROPOFOL 100 ML IV SCH ×4 (02:32→23:43)
[2022-05-17] MEDS: InsuLIN REG 1unit/0.01ml Soln (100units/ml) SC SCH ×4 (05:36→17:21)
[2022-05-17] MEDS: VANCOMYCIN 1GM/250ML 250 ML IV SCH ×2 (05:36→23:43)
[2022-05-17] MEDS: ACCU-CHEK COMFORT CURVE STRIP VI SCH ×4 (05:37→17:21)
[2022-05-17 06:55] LABS: Chloride 105 mmol/L (98-107); Potassium 3.7 mmol/L (3.5-5.1); Sodium 138 mmol/L (136-145)
[2022-05-17] MEDS ORDERED: hydrALAZINE HCL 20 MG/ML VL IV PRN (07:00)
[2022-05-17 07:17] LABS: Albumin 1.7 g/dL (3.4-5.0); Anion Gap 9 (5-15); BUN/Creatinine Ratio 51.6; Blood Urea Nitrogen 33 mg/dL (7-18); Carbon Dioxide 24 mmol/L (21-32); GFR African American 123 mL/min; GFR Non-African American 101 mL/min; Glucose 97 mg/dL (74-106); Magnesium 1.7 mg/dL (1.6-2.6)
[2022-05-17 07:23] LABS: Alanine Aminotransferase 18 U/L (13-56); Alkaline Phosphatase 150 U/L (45-117); Aspartate Aminotransferase 25 U/L (15-37); Bilirubin, Total 0.8 mg/dL (0.2-1.0); Total Protein 5.5 g/dL (6.4-8.2)
[2022-05-17] MEDS: ENOXAPARIN SOD 40 MG/0.4 ML SYRINGE SC SCH (08:42)
[2022-05-17] MEDS: PANTOPRAZOLE 40 MG/10 ML VIAL INJ IV SCH (08:42)
[2022-05-17] MEDS: THIAMINE 100mg/ml INJ (200mg/2ml VIAL) IV SCH (08:42)
[2022-05-17] MEDS: cefTRIAXone 1GM/50ML D5W 50 ML IV SCH (08:42)
[2022-05-17] MEDS: SODIUM CHLOR 0.9% PF (SALINE LOCK) 10ML VIAL/SYR IV SCH ×2 (08:43→22:33)
[2022-05-17] MEDS: MICAFUNGIN SODIUM 100 MG in SODIUM CHL 0.9% 100 ML IV SCH (10:01)
[2022-05-17] MEDS ORDERED: KETOROLAC TROMETH 30 MG/ML 1ML VIAL IV PRN (10:15)
[2022-05-17] MEDS: fentaNYL Drip 2500mCg/250mlNS 250 ML IV SCH (10:27)
[2022-05-17] MEDS ORDERED: POTASSIUM CHL 20MEQ/100ML 100 ML IV ONE (10:30)
[2022-05-17] MEDS: MAGNESIUM SULFATE 1GM/100ML 100 ML IV SCH ×2 (10:46→11:45)
[2022-05-17] MEDS ORDERED: OMNIPAQUE ORAL SOLN 500ml 12mg/ml PO ONE ×3 (14:05→14:06)
[2022-05-17 16:28] LABS: Basophils # (auto) 0 10 ^3/uL (0-0.2); Basophils % (auto) 0.5 % (0.0-2.0); Eosinophils # (auto) 0.1 10 ^3/uL (0-0.8); Hemoglobin 7.6 g/dL (12.2-16.2); Monocytes # (auto) 0.6 10 ^3/uL (0-1.3); Nucleated Red Blood Cells % 0.1 %; White Blood Cell 6.2 10^3/uL (4.4-10.8)
[2022-05-17 16:30] LABS: Eosinophils % (auto) 2.1 % (0.0-7.0); Hematocrit 22.7 % (36.0-46.0); Lymphocytes # (auto) 0.9 10 ^3/uL (0.4-5.4); Lymphocytes % (auto) 13.7 % (10.0-50.0); Mean Corpuscular Hemoglobin 32.3 pg (28.0-32.0); Mean Corpuscular Hgb Conc. 33.6 g/dL (32.0-36.0); Mean Corpuscular Volume 96.1 fL (80.0-100.0); Monocytes % (auto) 9.8 % (0.0-12.0); Neutrophils # (auto) 4.6 10 ^3/uL (1.6-8.6); Neutrophils % (auto) 73.9 % (37.0-80.0); Red Blood Cells 2.36 10^6/uL (4.0-5.20); Red Cell Distribution Width 13.7 % (11.8-14.3)
[2022-05-17] MEDS ORDERED: TPN PER PHARMACY IV NR ×9 (20:00)
[2022-05-17] MEDS: BUDESONIDE (INHALATION) 0.5 MG/2 ML NEB NEB SCH (22:21)
[2022-05-18] VITALS (79 sets, daily range): BP systolic 107–172; BP diastolic 47–83
[2022-05-18] MEDS: ACCU-CHEK COMFORT CURVE STRIP VI SCH ×4 (00:18→18:00)
[2022-05-18] MEDS: NOREPINEPHRINE 8 MG/250ML KIT 250 ML IV SCH (00:30)
[2022-05-18] MEDS: InsuLIN REG 1unit/0.01ml Soln (100units/ml) SC SCH ×4 (06:00→18:00)
[2022-05-18 06:11] LABS: Albumin 1.6 g/dL (3.4-5.0); Magnesium 1.8 mg/dL (1.6-2.6); Potassium 3.9 mmol/L (3.5-5.1)
[2022-05-18 06:16] LABS: BUN/Creatinine Ratio 58.1; Bilirubin, Total 0.8 mg/dL (0.2-1.0); Phosphorus 3.9 mg/dL (2.5-4.90); Total Protein 5.5 g/dL (6.4-8.2)
[2022-05-18] MEDS: MIDAZOLAM DRIP 50 mg/50mL 50 ML IV SCH ×2 (08:01→22:15)
[2022-05-18] MEDS: IPRATROPIUM BROM 0.5 MG/2.5ML INH SOL NEB PRN (09:08)
[2022-05-18] MEDS: BUDESONIDE (INHALATION) 0.5 MG/2 ML NEB NEB SCH ×2 (09:08→22:19)
[2022-05-18] MEDS: PROPOFOL 100 ML IV SCH ×2 (09:25→20:05)
[2022-05-18] MEDS: cefTRIAXone 1GM/50ML D5W 50 ML IV SCH (09:48)
[2022-05-18] MEDS: MICAFUNGIN SODIUM 100 MG in SODIUM CHL 0.9% 100 ML IV SCH (09:48)
[2022-05-18] MEDS: SODIUM CHLOR 0.9% PF (SALINE LOCK) 10ML VIAL/SYR IV SCH ×2 (09:49→22:09)
[2022-05-18] MEDS: THIAMINE 100mg/ml INJ (200mg/2ml VIAL) IV SCH (09:49)
[2022-05-18] MEDS: ENOXAPARIN SOD 40 MG/0.4 ML SYRINGE SC SCH (09:49)
[2022-05-18] MEDS: PANTOPRAZOLE 40 MG/10 ML VIAL INJ IV SCH (09:49)
[2022-05-18 10:47] LABS: Hematocrit 25.5 % (36.0-46.0); Hemoglobin 8.6 g/dL (12.2-16.2); Mean Corpuscular Hgb Conc. 33.6 g/dL (32.0-36.0); Mean Corpuscular Volume 95.1 fL (80.0-100.0); Red Blood Cells 2.68 10^6/uL (4.0-5.20); Red Cell Distribution Width 13.7 % (11.8-14.3); White Blood Cell 7.5 10^3/uL (4.4-10.8)
[2022-05-18 10:48] LABS: Basophils % (manual) 0 (0.0-2.0); Blast Cells 0; Metamyelocytes % 0; Myelocytes % 0; Promyelocytes % 0; Reactive Lymphocytes 0
[2022-05-18 11:22] LABS: Band Neutrophils % (manual) 32; Eosinophils % (manual) 3 (0-7); Lymphocytes % (manual) 10 (10.0-50.0); Monocytes % (manual) 12 (0-12)
[2022-05-18] MEDS ORDERED: metroNIDAZOLE 500MG/100ML 100 ML IV SCH (14:00)
[2022-05-18] MEDS: VANCOMYCIN 1GM/250ML 250 ML IV SCH (16:12)
[2022-05-18] MEDS ORDERED: TPN PER PHARMACY IV NR ×8 (20:00)
[2022-05-18] MEDS: fentaNYL Drip 2500mCg/250mlNS 250 ML IV SCH (20:05)
[2022-05-18] MEDS: MEROPENEM 1GM IVPB 100 ML IV SCH (22:08)
[2022-05-19] VITALS (75 sets, daily range): BP systolic 96–164; BP diastolic 39–81
[2022-05-19 05:40] LABS: Basophils # (auto) 0.1 10 ^3/uL (0-0.2); Eosinophils # (auto) 0.2 10 ^3/uL (0-0.8); Hemoglobin 8.3 g/dL (12.2-16.2); Monocytes # (auto) 0.9 10 ^3/uL (0-1.3); White Blood Cell 8.1 10^3/uL (4.4-10.8)
[2022-05-19 05:42] LABS: Basophils % (auto) 0.8 % (0.0-2.0); Eosinophils % (auto) 2.2 % (0.0-7.0); Hematocrit 24.6 % (36.0-46.0); Lymphocytes # (auto) 0.9 10 ^3/uL (0.4-5.4); Lymphocytes % (auto) 11.5 % (10.0-50.0); Mean Corpuscular Hemoglobin 31.9 pg (28.0-32.0); Mean Corpuscular Hgb Conc. 33.8 g/dL (32.0-36.0); Mean Corpuscular Volume 94.5 fL (80.0-100.0); Monocytes % (auto) 10.9 % (0.0-12.0); Neutrophils # (auto) 6.1 10 ^3/uL (1.6-8.6); Neutrophils % (auto) 74.6 % (37.0-80.0); Red Blood Cells 2.61 10^6/uL (4.0-5.20); Red Cell Distribution Width 13.6 % (11.8-14.3)
[2022-05-19 05:54] LABS: Calcium 7.8 mg/dL (8.5-10.1); Potassium 3.9 mmol/L (3.5-5.1)
[2022-05-19 06:00] LABS: Albumin 1.5 g/dL (3.4-5.0); BUN/Creatinine Ratio 48.4; Bilirubin, Total 0.6 mg/dL (0.2-1.0); Magnesium 1.8 mg/dL (1.6-2.6); Phosphorus 4.6 mg/dL (2.5-4.90); Total Protein 5.3 g/dL (6.4-8.2)
[2022-05-19] MEDS: InsuLIN REG 1unit/0.01ml Soln (100units/ml) SC SCH ×4 (06:00→18:00)
[2022-05-19] MEDS: MEROPENEM 1GM IVPB 100 ML IV SCH ×2 (06:04→14:11)
[2022-05-19] MEDS: ACCU-CHEK COMFORT CURVE STRIP VI SCH ×4 (06:05→18:00)
[2022-05-19] MEDS: PROPOFOL 100 ML IV SCH ×2 (07:43→13:26)
[2022-05-19] MEDS: NOREPINEPHRINE 8 MG/250ML KIT 250 ML IV SCH (08:00)
[2022-05-19] MEDS: BUDESONIDE (INHALATION) 0.5 MG/2 ML NEB NEB SCH (10:13)
[2022-05-19] MEDS: MICAFUNGIN SODIUM 100 MG in SODIUM CHL 0.9% 100 ML IV SCH (10:24)
[2022-05-19] MEDS: ENOXAPARIN SOD 40 MG/0.4 ML SYRINGE SC SCH (10:25)
[2022-05-19] MEDS: THIAMINE 100mg/ml INJ (200mg/2ml VIAL) IV SCH (10:25)
[2022-05-19] MEDS: SODIUM CHLOR 0.9% PF (SALINE LOCK) 10ML VIAL/SYR IV SCH (10:25)
[2022-05-19] MEDS: PANTOPRAZOLE 40 MG/10 ML VIAL INJ IV SCH (10:25)
[2022-05-19] MEDS: VANCOMYCIN 1GM/250ML 250 ML IV SCH (11:53)
[2022-05-19] MEDS: fentaNYL Drip 2500mCg/250mlNS 250 ML IV SCH (14:10)
[2022-05-19] MEDS ORDERED: TPN PER PHARMACY IV NR ×9 (20:00)
== END 2022-05-19 22:44 | disposition critical access hospital (66) | DRG 853 ==
LOC: ER 17:29 → OVERFLOW 23:58 → ICU CENTRL 04-28 00:52
PROVIDERS: ADMIT Nurse Practitioner Family; ATTEND Nurse Practitioner Acute Care
PROC: 0D1B0Z4 Bypass Ileum to Cutaneous, Open Approach (ICD-10-PCS; 2022-04-27)
PROC: 0DBB0ZZ Excision of Ileum, Open Approach (ICD-10-PCS; 2022-04-27)
PROC: 5A1955Z Respiratory Ventilation, Greater than 96 Consecutive Hours (ICD-10-PCS; 2022-04-27)
PROC: 0BH17EZ Insertion of Endotracheal Airway into Trachea, Via Natural or Artificial Opening (ICD-10-PCS; 2022-04-27)
PROC: 0DTF0ZZ Resection of Right Large Intestine, Open Approach (ICD-10-PCS; principal; 2022-04-27 20:20)
DX: A41.9 Sepsis, unspecified organism (principal); J96.01 Acute respiratory failure with hypoxia; K27.5 Chronic or unspecified peptic ulcer, site unspecified, with perforation; K65.8 Other peritonitis; N17.0 Acute kidney failure with tubular necrosis; R65.21 Severe sepsis with septic shock; K63.1 Perforation of intestine (nontraumatic); E87.1 Hypo-osmolality and hyponatremia; N39.0 Urinary tract infection, site not specified; E87.20 Acidosis, unspecified; K56.7 Ileus, unspecified; K91.89 Other postprocedural complications and disorders of digestive system; D84.9 Immunodeficiency, unspecified; R18.8 Other ascites; Z99.11 Dependence on respirator [ventilator] status; D69.6 Thrombocytopenia, unspecified; E66.01 Morbid (severe) obesity due to excess calories; F17.210 Nicotine dependence, cigarettes, uncomplicated; N20.0 Calculus of kidney; E87.5 Hyperkalemia; E88.09 Other disorders of plasma-protein metabolism, not elsewhere classified; B95.2 Enterococcus as the cause of diseases classified elsewhere; B96.20 Unspecified Escherichia coli [E. coli] as the cause of diseases classified elsewhere; E87.70 Fluid overload, unspecified; F10.10 Alcohol abuse, uncomplicated; J44.9 Chronic obstructive pulmonary disease, unspecified; K52.9 Noninfective gastroenteritis and colitis, unspecified; Z68.34 Body mass index [BMI] 34.0-34.9, adult; Z87.442 Personal history of urinary calculi; Z93.3 Colostomy status; Z82.49 Family history of ischemic heart disease and other diseases of the circulatory system; Z90.49 Acquired absence of other specified parts of digestive tract; Z80.9 Family history of malignant neoplasm, unspecified
CPT/HCPCS: 36415; 36569; 36600; 71045; 74176; 74177; 76604; 76705; 76942; 80053; 80202; 81001; 82150; 82805; 82962; 83036; 83605; 83690; 83735; 83880; 84100; 84132; 84478; 84484; 85007; 85025; 85027; 85610; 85730; 86850; 86900; 86901; 86920; 87040; 87070; 87077; 87081; 87086; 87088; 87186; 87205; 94002; 94003; 94640; 96374; 96375; C1729; C9113; G0378; J0330; J0690; J0696; J1100; J1815; J1885; J2001; J2185; J2248; J2250; J2405; J2543; J2704; J3480; J3490; J7060; J7131; P9047